=== PATIENT | female | born 1965 | race Caucasian/White ===

== ENCOUNTER → 2018-12-10 14:00 | Emergency (ER) | payer BC | END | disposition left against medical advice (07) | LOC: JD.ED 14:00 | DX: Z53.21 Procedure and treatment not carried out due to patient leaving prior to being seen by health care provider (principal) ==

== ENCOUNTER 2021-02-10 14:11 | Inpatient (IN) | payer BC ==
[2021-02-10] MEDS ORDERED: Sodium Chloride 0.9% 10 ML Syringe FLUSH PRN (14:34)
[2021-02-10] MEDS ORDERED: Ketorolac 30 MG/ML SDV IVPUSH ONE (15:12)
[2021-02-10] MEDS ORDERED: Ondansetron 4 MG/2 ML SDV IVPUSH ONE (15:12)
--- NOTE | 2021-02-10 15:30 | EDM.PDOC ---
ED HPI GENERAL MEDICAL PROBLEM - General Chief Complaint: Respiratory Problem Stated Complaint: NAUSEA Time Seen by Provider: 02/10/21 14:21 Source of Information: Reports: Patient, RN Notes Reviewed History Limitations: Reports: No Limitations - History of Present Illness INITIAL COMMENTS - FREE TEXT/NARRATIVE: Patient is a 55-year-old female presenting to the emergency department with complaints of fever, body aches, cough, shortness of breath, nausea with dry heaving, weakness, and diarrhea. Symptoms began on Saturday with weakness, diarrhea, decreased appetite, and mild cough. Today she developed fever and worsening of shortness of breath. On triage, she was found to be significantly hypoxic with an oxygen saturation of 70 to 75% on room air with a respiratory rate of 32. Temperature elevated at 101.2 pulse rate and blood pressure are normal. Patient states that she has taken Tylenol earlier today with little relief. She denies any chronic heart or lung conditions. She does have a history of hypothyroidism and migraines. Denies any known sick contacts. She has not been vaccinated for COVID-19. - Related Data Allergies Allergy/AdvReac Type Severity Reaction Status Date / Time No Known Allergies Allergy Verified 02/10/21 14:34 Home Meds: Home Meds Escitalopram [Lexapro] 30 mg PO DAILY 02/10/21 [History] LORazepam [Ativan] 0.5 - 1 mg PO BID 02/10/21 [History] Levothyroxine 125 mcg PO ACBREAKFAST 02/10/21 [History] Neomycin/Polymyxin B Sulf/HC [Pdjchcdi-Gegdbtxtb-Ze Ear Soln] 4 drop TOP QID 02/10/21 [History] QUEtiapine [SEROquel] 25 mg PO BID 02/10/21 [History] Past Medical History HEENT History: Reports: Impaired Vision Genitourinary History: Reports: Renal Calculus Psychiatric History: Reports: Anxiety, Depression Endocrine/Metabolic History: Reports: Other (See Below) Other Endocrine/Metabolic History: Thyroid removed - Past Surgical History HEENT Surgical History: Reports: Other (See Below) Other HEENT Surgeries/Procedures: thyroid removed GI Surgical History: Reports: Cholecystectomy, Colonoscopy Female Surgical History: Reports: Hysterectomy ED ROS GENERAL - Review of Systems Review Of Systems: See Below Constitutional: Reports: Fever, Chills, Weakness, Fatigue, Decreased Appetite HEENT: Reports: No Symptoms Respiratory: Reports: Shortness of Breath, Cough Cardiovascular: Reports: No Symptoms. Denies: Chest Pain, Palpitations Endocrine: Reports: No Symptoms GI/Abdominal: Reports: Abdominal Pain (Intermittent generalized abdominal pain), Diarrhea, Nausea, Vomiting : Reports: No Symptoms Musculoskeletal: Reports: Other (Generalized body aches) Skin: Reports: No Symptoms Neurological: Reports: No Symptoms, Headache. Denies: Confusion Psychiatric: Reports: Anxiety Hematologic/Lymphatic: Reports: No Symptoms Immunologic: Reports: No Symptoms ED EXAM, GENERAL - Physical Exam Exam: See Below General Appearance: Alert, Anxious, Mild Distress Respiratory/Chest: No Respiratory Distress, Lungs Clear, No Accessory Muscle Use, Chest Non-Tender, Decreased Breath Sounds (throughout), Other (shallow respiration, tachypnic) Cardiovascular: Normal Peripheral Pulses, Regular Rate, Rhythm, No Edema, No Gallop, No JVD, No Murmur, No Rub GI/Abdominal: Normal Bowel Sounds, Soft, Non-Tender, No Organomegaly, No Distention, No Abnormal Bruit, No Mass Neurological: Alert, Oriented, Normal Cognition, No Motor/Sensory Deficits Psychiatric: Normal Affect, Anxious Skin Exam: Intact, Increased Warmth, Pallor #1 Interpretation EKG Date: 02/10/21 Time: 14:29 Rhythm: NSR Rate (Beats/Min): 61 [place]: Normal P-Wave: Present QRS: Normal ST-T: Normal QT: Normal EKG Interpretation Comments: Atrial paced rhythm at 60 bpm Initial poor R wave progression with delayed transition Tall R wave lead I-consider left ventricular hypertrophy T wave flattening in aVF EKG interpreted by Dr. Niki ZAMORANO Course - Vital Signs Last Recorded V/S: Last Vital Signs Temp 97.6 F 02/10/21 18:58 Pulse 76 02/10/21 18:58 Resp 22 H 02/10/21 18:58 BP 101/65 02/10/21 18:58 Pulse Ox 90 L 02/10/21 18:58 - Orders/Labs/Meds Orders: Active Orders 24 hr Category Date Time Status CULTURE BLOOD [BC] Stat Lab 02/10/21 15:18 Received CULTURE BLOOD [BC] Stat Lab 02/10/21 15:28 Received Sodium Chloride 0.9% [Saline Flush] Med 02/10/21 14:34 Active 10 ml FLUSH ASDIRECTED PRN Blood Culture x2 Reflex Set [OM.PC] Stat Oth 02/10/21 14:34 Ordered Saline Lock Insert [OM.PC] Stat Oth 02/10/21 14:34 Ordered EKG 12 Lead [EK] Stat Ther 02/10/21 14:34 Ordered Medication Orders Acetaminophen (Acetaminophen 325 Mg Tab) 650 mg PO Q4H PRN PRN Reason: Fever Greater Than 101 Albuterol (Albuterol 6.7 Gm Inhaler) 0 gm INH Q2H PRN PRN Reason: SOB/Wheezing Aspirin (Aspirin 81 Mg Tab.Ec) 81 mg PO DAILY [facility] Cholecalciferol (Cholecalciferol (Vitamin D3) 5,000 Unit Cap) 5,000 unit PO BEDTIME [facility] Last Admin: 02/10/21 19:56 Dose: 5,000 unit Documented by: MARY Dexamethasone (Dexamethasone 4 Mg Tab) 6 mg PO DAILY [facility] Stop: 02/19/21 09:01 Enoxaparin Sodium (Enoxaparin 30 Mg/0.3 Ml Syringe) 30 mg SUBCUT BID [facility] Last Admin: 02/10/21 19:57 Dose: 30 mg Documented by: MARY Famotidine (Famotidine 20 Mg Tab) 20 mg PO BID [facility] Last Admin: 02/10/21 19:57 Dose: 20 mg Documented by: MARY Azithromycin 500 mg/ Sodium (Chloride) 250 mls @ 250 mls/hr IV Q24H [facility] Stop: 02/12/21 19:29 Last Admin: 02/10/21 18:49 Dose: 250 mls/hr Documented by: FABRICIO Remdesivir 100 mg/ Sodium (Chloride) 100 mls @ 100 mls/hr IV DAILY [facility] Stop: 02/14/21 09:59 Ceftriaxone Sodium 2 gm/ (Sodium Chloride) 100 mls @ 200 mls/hr IV Q24H [facility] Stop: 02/14/21 20:29 Remdesivir 200 mg/ Sodium (Chloride) 250 mls @ 250 mls/hr IV ONETIME ONE Stop: 02/10/21 21:59 Levothyroxine Sodium (Levothyroxine 125 Mcg Tab) 125 mcg PO ACBREAKFAST [facility] Lorazepam (Lorazepam 1 Mg Tab) 1 mg PO Q6H PRN PRN Reason: Anxiety Lorazepam (Lorazepam 1 Mg Tab) 0.5 - 1 mg PO BID [facility] Last Admin: 02/10/21 19:59 Dose: 1 mg Documented by: MARY Neomycin/Polymyxin/Hydrocortisone (Hydrocortisone/Neomycin/Polymyxin B Otic Susp 10 Ml Bottle) 0 ml .XX QID [facility] Non-Formulary Medication (Escitalopram) 30 mg PO DAILY [facility] Ondansetron HCl (Ondansetron 4 Mg/2 Ml Sdv) 4 mg IV Q6H PRN PRN Reason: Nausea/Vomiting Quetiapine Fumarate (Quetiapine 25 Mg Tab) 25 mg PO BID [facility] Sodium Chloride (Sodium Chloride 0.9% 10 Ml Syringe) 10 ml FLUSH ASDIRECTED PRN PRN Reason: Keep Vein Open Last Admin: 02/10/21 15:26 Dose: 10 ml Documented by: MEAGAN Zinc Sulfate (Zinc Sulfate 220 Mg Cap) 220 mg PO BEDTIME [facility] Last Admin: 02/10/21 19:57 Dose: 220 mg Documented by: MARY Labs: Laboratory Tests 02/10/21 02/10/21 02/10/21 Range/Units 14:54 15:18 15:18 WBC 3.70 L (3.98-10.04) K/mm3 RBC 4.95 (3.98-5.22) M/mm3 Hgb 13.8 (11.2-15.7) gm/dl Hct 43.6 (34.1-44.9) % MCV 88.1 (79.4-94.8) fl MCH 27.9 (25.6-32.2) pg MCHC 31.7 L (32.2-35.5) g/dl RDW Std Deviation 41.2 (36.4-46.3) fL Plt Count 181 L (182-369) K/mm3 MPV 10.2 (9.4-12.3) fl Neutrophils % (Manual) 81 H (40-60) % Band Neutrophils % 0 (0-10) % Lymphocytes % (Manual) 14 L (20-40) % Atypical Lymphs % 0 % Monocytes % (Manual) 4 (2-10) % Eosinophils % (Manual) 0 L (0.7-5.8) % Basophils % (Manual) 1 (0.1-1.2) Platelet Estimate Adequate RBC Morph Comment Normal PT 10.8 (9.7-12.0) SECONDS INR 1.01 D-Dimer, Quantitative 0.67 H (0.19-0.50) mg/L Puncture Site ABG pH (7.35-7.45) ABG pCO2 (35.0-45.0) mmHg ABG pO2 (80.0-100.0) mmHg ABG HCO3 (22.0-26.0) meq/L ABG O2 Saturation (96.0-97.0) % ABG Base Excess (-2-2.0) Savage Test A-a Gradient mmHg O2 Delivery Device Oxygen Flow Rate FiO2 (21.00-100.00) % Sodium (136-145) mEq/L Potassium (3.5-5.1) mEq/L Chloride (98-107) mEq/L Carbon Dioxide (21-32) mEq/L Anion Gap (5-15) BUN (7-18) mg/dL Creatinine (0.55-1.02) mg/dL Est Cr Clr Drug Dosing mL/min Estimated GFR (MDRD) (>60) mL/min BUN/Creatinine Ratio (14-18) Glucose (74-106) mg/dL Lactic Acid (0.4-2.0) mmol/L Calcium (8.5-10.1) mg/dL Magnesium (1.8-2.4) mg/dl Total Bilirubin (0.2-1.0) mg/dL AST (15-37) U/L ALT (14-59) U/L Alkaline Phosphatase (46-116) U/L Troponin I (0.00-0.056) ng/mL C-Reactive Protein (<1.0) mg/dL NT-Pro-B Natriuret Pep (0-125) pg/mL Total Protein (6.4-8.2) g/dl Albumin (3.4-5.0) g/dl Globulin gm/dL Albumin/Globulin Ratio (1-2) Influenza Type A RNA Negative (NEGATIVE) Influenza Type B RNA Negative (NEGATIVE) SARS-CoV-2 RNA ([place]) Positive H (NEGATIVE) 02/10/21 02/10/21 02/10/21 Range/Units 15:18 15:18 15:18 WBC (3.98-10.04) K/mm3 RBC (3.98-5.22) M/mm3 Hgb (11.2-15.7) gm/dl Hct (34.1-44.9) % MCV (79.4-94.8) fl MCH (25.6-32.2) pg MCHC (32.2-35.5) g/dl RDW Std Deviation (36.4-46.3) fL Plt Count (182-369) K/mm3 MPV (9.4-12.3) fl Neutrophils % (Manual) (40-60) % Band Neutrophils % (0-10) % Lymphocytes % (Manual) (20-40) % Atypical Lymphs % % Monocytes % (Manual) (2-10) % Eosinophils % (Manual) (0.7-5.8) % Basophils % (Manual) (0.1-1.2) Platelet Estimate RBC Morph Comment PT (9.7-12.0) SECONDS INR D-Dimer, Quantitative (0.19-0.50) mg/L Puncture Site ABG pH (7.35-7.45) ABG pCO2 (35.0-45.0) mmHg ABG pO2 (80.0-100.0) mmHg ABG HCO3 (22.0-26.0) meq/L ABG O2 Saturation (96.0-97.0) % ABG Base Excess (-2-2.0) Savage Test A-a Gradient mmHg O2 Delivery Device Oxygen Flow Rate FiO2 (21.00-100.00) % Sodium 141 (136-145) mEq/L Potassium 3.5 (3.5-5.1) mEq/L Chloride 103 (98-107) mEq/L Carbon Dioxide 26 (21-32) mEq/L Anion Gap 15.5 H (5-15) BUN 17 (7-18) mg/dL Creatinine 1.2 H (0.55-1.02) mg/dL Est Cr Clr Drug Dosing 38.50 mL/min Estimated GFR (MDRD) 47 (>60) mL/min BUN/Creatinine Ratio 14.2 (14-18) Glucose 127 H (74-106) mg/dL Lactic Acid 1.2 (0.4-2.0) mmol/L Calcium 8.0 L (8.5-10.1) mg/dL Magnesium 1.8 (1.8-2.4) mg/dl Total Bilirubin 0.3 (0.2-1.0) mg/dL AST 70 H (15-37) U/L ALT 69 H (14-59) U/L Alkaline Phosphatase 43 L (46-116) U/L Troponin I < 0.017 (0.00-0.056) ng/mL C-Reactive Protein 8.1 H* (<1.0) mg/dL NT-Pro-B Natriuret Pep (0-125) pg/mL Total Protein 7.9 (6.4-8.2) g/dl Albumin 3.3 L (3.4-5.0) g/dl Globulin 4.6 gm/dL Albumin/Globulin Ratio 0.7 L (1-2) Influenza Type A RNA (NEGATIVE) Influenza Type B RNA (NEGATIVE) SARS-CoV-2 RNA ([place]) (NEGATIVE) 02/10/21 02/10/21 Range/Units 15:18 15:27 WBC (3.98-10.04) K/mm3 RBC (3.98-5.22) M/mm3 Hgb (11.2-15.7) gm/dl Hct (34.1-44.9) % MCV (79.4-94.8) fl MCH (25.6-32.2) pg MCHC (32.2-35.5) g/dl RDW Std Deviation (36.4-46.3) fL Plt Count (182-369) K/mm3 MPV (9.4-12.3) fl Neutrophils % (Manual) (40-60) % Band Neutrophils % (0-10) % Lymphocytes % (Manual) (20-40) % Atypical Lymphs % % Monocytes % (Manual) (2-10) % Eosinophils % (Manual) (0.7-5.8) % Basophils % (Manual) (0.1-1.2) Platelet Estimate RBC Morph Comment PT (9.7-12.0) SECONDS INR D-Dimer, Quantitative (0.19-0.50) mg/L Puncture Site Lt radial ABG pH 7.37 (7.35-7.45) ABG pCO2 38.6 (35.0-45.0) mmHg ABG pO2 60.0 L (80.0-100.0) mmHg ABG HCO3 21.8 L (22.0-26.0) meq/L ABG O2 Saturation 90.3 L (96.0-97.0) % ABG Base Excess -2.6 L (-2-2.0) Savage Test Positive A-a Gradient 120 mmHg O2 Delivery Device Nasal cannula Oxygen Flow Rate 3.0 FiO2 32.00 (21.00-100.00) % Sodium (136-145) mEq/L Potassium (3.5-5.1) mEq/L Chloride (98-107) mEq/L Carbon Dioxide (21-32) mEq/L Anion Gap (5-15) BUN (7-18) mg/dL Creatinine (0.55-1.02) mg/dL Est Cr Clr Drug Dosing mL/min Estimated GFR (MDRD) (>60) mL/min BUN/Creatinine Ratio (14-18) Glucose (74-106) mg/dL Lactic Acid (0.4-2.0) mmol/L Calcium (8.5-10.1) mg/dL Magnesium (1.8-2.4) mg/dl Total Bilirubin (0.2-1.0) mg/dL AST (15-37) U/L ALT (14-59) U/L Alkaline Phosphatase (46-116) U/L Troponin I (0.00-0.056) ng/mL C-Reactive Protein (<1.0) mg/dL NT-Pro-B Natriuret Pep 22 (0-125) pg/mL Total Protein (6.4-8.2) g/dl Albumin (3.4-5.0) g/dl Globulin gm/dL Albumin/Globulin Ratio (1-2) Influenza Type A RNA (NEGATIVE) Influenza Type B RNA (NEGATIVE) SARS-CoV-2 RNA ([place]) (NEGATIVE) Meds: Medications Generic Name Dose Route Start Last Admin Trade Name Freq PRN Reason Stop Dose Admin Acetaminophen 650 mg 02/10/21 17:30 Acetaminophen 325 Mg Tab PO Q4H PRN Fever Greater Than 101 Albuterol 0 gm 02/10/21 18:52 Albuterol 6.7 Gm Inhaler INH Q2H PRN SOB/Wheezing Aspirin 81 mg 02/11/21 09:00 Aspirin 81 Mg Tab.Ec PO DAILY [facility] Cholecalciferol 5,000 unit 02/10/21 21:00 02/10/21 19:56 Cholecalciferol (Vitamin D3) 5,000 Unit Cap PO 5,000 unit BEDTIME [facility] Administration Dexamethasone 6 mg 02/11/21 09:00 Dexamethasone 4 Mg Tab PO 02/19/21 09:01 DAILY [facility] Enoxaparin Sodium 30 mg 02/10/21 21:00 02/10/21 19:57 Enoxaparin 30 Mg/0.3 Ml Syringe SUBCUT 30 mg BID [facility] Administration Famotidine 20 mg 02/10/21 21:00 02/10/21 19:57 Famotidine 20 Mg Tab PO 20 mg BID [facility] Administration Azithromycin 500 mg/ Sodium 250 mls @ 250 mls/hr 02/10/21 18:30 02/10/21 18:49 Chloride IV 02/12/21 19:29 250 mls/hr Q24H [facility] Administration Remdesivir 100 mg/ Sodium 100 mls @ 100 mls/hr 02/11/21 09:00 Chloride IV 02/14/21 09:59 DAILY [facility] Ceftriaxone Sodium 2 gm/ 100 mls @ 200 mls/hr 02/10/21 20:00 Sodium Chloride IV 02/14/21 20:29 Q24H [facility] Remdesivir 200 mg/ Sodium 250 mls @ 250 mls/hr 02/10/21 21:00 Chloride IV 02/10/21 21:59 ONETIME ONE Levothyroxine Sodium 125 mcg 02/11/21 06:00 Levothyroxine 125 Mcg Tab PO ACBREAKFAST [facility] Lorazepam 1 mg 02/10/21 17:42 Lorazepam 1 Mg Tab PO Q6H PRN Anxiety Lorazepam 0.5 - 1 mg 02/10/21 21:00 02/10/21 19:59 Lorazepam 1 Mg Tab PO 1 mg BID [facility] Administration Neomycin/Polymyxin/Hydrocortisone 0 ml 02/10/21 21:00 Hydrocortisone/Neomycin/Polymyxin B Otic Susp 10 Ml Bottle .XX QID [facility] Non-Formulary Medication 30 mg 02/11/21 09:00 Escitalopram PO DAILY [facility] Ondansetron HCl 4 mg 02/10/21 18:50 Ondansetron 4 Mg/2 Ml Sdv IV Q6H PRN Nausea/Vomiting Quetiapine Fumarate 25 mg 02/10/21 21:00 Quetiapine 25 Mg Tab PO BID [facility] Sodium Chloride 10 ml 02/10/21 14:34 02/10/21 15:26 Sodium Chloride 0.9% 10 Ml Syringe FLUSH 10 ml ASDIRECTED PRN Administration Keep Vein Open Zinc Sulfate 220 mg 02/10/21 21:00 02/10/21 19:57 Zinc Sulfate 220 Mg Cap PO 220 mg BEDTIME [facility] Administration Discontinued Medications Generic Name Dose Route Start Last Admin Trade Name Marcos PRJewels Reason Stop Dose Admin Cholecalciferol 5,000 unit 02/10/21 19:00 Cholecalciferol (Vitamin D3) 5,000 Unit Cap PO DAILY [facility] Dexamethasone 6 mg 02/10/21 15:41 02/10/21 15:48 Dexamethasone 4 Mg/Ml Sdv IVPUSH 02/10/21 15:42 6 mg ONETIME ONE Administration Dexamethasone 6 mg 02/11/21 09:00 Dexamethasone 10 Mg/Ml Sdv IVPUSH 02/19/21 09:01 DAILY [facility] Remdesivir 100 mg/ Sodium 100 mls @ 100 mls/hr 02/11/21 09:00 Chloride IV 02/14/21 09:59 DAILY [facility] Ceftriaxone Sodium 2 gm/ 100 mls @ 200 mls/hr 02/10/21 18:00 02/10/21 19:06 Sodium Chloride IV 02/14/21 18:29 Not Given Q24H [facility] Remdesivir 200 mg/ Sodium 250 mls @ 250 mls/hr 02/10/21 18:44 02/10/21 19:20 Chloride IV 02/10/21 18:45 Not Given ONETIME ONE Ketorolac Tromethamine 30 mg 02/10/21 15:12 02/10/21 15:22 Ketorolac 30 Mg/Ml Sdv IVPUSH 02/10/21 15:13 30 mg ONETIME ONE Administration Lorazepam 0.5 mg 02/10/21 16:38 02/10/21 16:57 Lorazepam 2 Mg/Ml Sdv IVPUSH 02/10/21 16:39 0.5 mg ONETIME ONE Administration Magnesium Oxide 400 mg 02/10/21 19:10 02/10/21 19:55 Magnesium Oxide 400 Mg Tab PO 02/10/21 19:11 400 mg ONETIME ONE Administration Ondansetron HCl 4 mg 02/10/21 15:12 02/10/21 15:23 Ondansetron 4 Mg/2 Ml Sdv IVPUSH 02/10/21 15:13 4 mg ONETIME ONE Administration Zinc Sulfate 220 mg 02/10/21 19:00 Zinc Sulfate 220 Mg Cap PO DAILY [facility] - Re-Assessments/Exams Free Text/Narrative Re-Assessment/Exam: Patient is a 55-year-old female presenting to the emergency department with complaints of fever, cough, shortness of breath, body aches, diarrhea, nausea with dry heaves. On exam, lung sounds are diminished throughout. Respirations are shallow. She is tachypneic. Oxygen saturation was as low as 70% on room air upon triage. She is currently on 3 L of oxygen saturating in the low 90s. She complains of significant body aches and nausea. Temperature was 101.2 on triage. Presentation is suspicious for a diagnosis of Covid, however will also complete a septic work-up. I will give her Zofran 4 mg IV for nausea as well as Toradol 30 mg IV for body aches and fever. 02/10/21 16:28 Hematology was significant for a WBC low at 3.7, D-dimer minimally elevated at 0.67, anion gap 15.5, creatinine 1.2 with a GFR 47, calcium 8.0, AST 70, ALT 69, CRP 8.1. ABGs on 3 L of oxygen by nasal cannula revealed a normal pH of 7.37, PCO2 normal at 38.6, PO2 low at 60.0, bicarb low at 21.8, O2 saturation low at 9 0.3. Covid screen did come back positive. EKG shows no evidence of acute ischemia. Chest x-ray shows patchy peripheral densities consistent with Covid pneumonia. Heart is also enlarged with mild pulmonary vascular congestion, suggesting mild CHF. Patient's proBNP was normal at 22. Her nausea and body aches have improved with the medications given. I ordered dexamethasone 6 mg IV to be given. Case was discussed with hospitalist, Dr. Bradford. He will accept the patient to admission into the ICU. Oxygen saturation did dip into the 80s on the 3 L, therefore she is currently on 4 L of oxygen by nasal cannula satting in the low 90s. 02/10/21 16:38 Patient is tearful and highly anxious. She has been removing her oxygen from her nose. She does have a history of anxiety. Have ordered Ativan 0.5 mg IV to be given now. Departure - Departure Time of Disposition: 16:28 Disposition: Admitted As Inpatient 67 Condition: Fair Clinical Impression: COVID-19, Hypoxia, Pneumonia due to COVID-19 virus - Discharge Information Sepsis Event Note (ED) - Evaluation Sepsis Screening Result: No Definite Risk - Focused Exam Vital Signs: Vital Signs Temp Pulse Resp BP Pulse Ox Pulse Ox 02/10/21 15:30 92 105/82 89 L 02/10/21 14:42 93 L 02/10/21 14:30 94 114/64 02/10/21 14:26 101.2 F H 95 32 H 114/64 75 L - My Orders Last 24 Hours: My Active Orders 02/10/21 14:34 Sodium Chloride 0.9% [Saline Flush] 10 ml FLUSH ASDIRECTED PRN Blood Culture x2 Reflex Set [OM.PC] Stat Saline Lock Insert [OM.PC] Stat EKG 12 Lead [EK] Stat 02/10/21 15:18 CULTURE BLOOD [BC] Stat 02/10/21 15:28 CULTURE BLOOD [BC] Stat - Assessment/Plan Last 24 Hours: My Active Orders 02/10/21 14:34 Sodium Chloride 0.9% [Saline Flush] 10 ml FLUSH ASDIRECTED PRN Blood Culture x2 Reflex Set [OM.PC] Stat Saline Lock Insert [OM.PC] Stat EKG 12 Lead [EK] Stat 02/10/21 15:18 CULTURE BLOOD [BC] Stat 02/10/21 15:28 CULTURE BLOOD [BC] Stat
[2021-02-10 15:41] LABS: CORONAVIRUS COVID-19 NAA POSITIVE (NEGATIVE)
[2021-02-10] MEDS ORDERED: Dexamethasone 4 MG/ML SDV IVPUSH ONE (15:41)
--- NOTE | 2021-02-10 15:59 | CR ---
Chest: Portable view of the chest was obtained. Comparison: No prior study. Patchy areas of increased density are noted within the periphery of both lungs. Heart is felt to be slightly enlarged. Pulmonary vessels are mildly congested. Degenerative endplate spurring is noted within the spine. Impression: 1. Patchy peripheral densities are seen. Please correlate if patient does have COVID disease. 2. Heart is enlarged with mild pulmonary vascular congestion suggesting mild CHF. Diagnostic code #3
[2021-02-10] MEDS ORDERED: LORazepam 2 MG/ML SDV IVPUSH ONE (16:38)
--- NOTE | 2021-02-10 17:11 | PCM.HP.2 ---
H&P History of Present Illness - General Date of Service: 02/10/21 Admit Problem/Dx: Admission Diagnosis/Problem Admission Diagnosis/Problem Pneumonia Source of Information: Patient, Provider History Limitations: Reports: Respiratory Distress - History of Present Illness Initial Comments - Free Text/Narative: Problem Stated Complaint: NAUSEA Time Seen by Provider: 02/10/21 14:21 Source of Information: Reports: Patient, RN Notes Reviewed History Limitations: Reports: No Limitations - History of Present Illness INITIAL COMMENTS - FREE TEXT/NARRATIVE: Patient is a 55-year-old female presenting to the emergency department with comp laints of fever, body aches, cough, shortness of breath, nausea with dry heaving, weakness, and diarrhea. Symptoms began on Saturday with weakness, diarrhea, decreased appetite, and mild cough. gradually worsening , but did not think she had covid until today . Today she developed fever and worsening of shortness of breath and whole body aches. On triage, she was found to be significantly hypoxic with an oxygen saturation of 70 to 75% on room air with a respiratory rate of 32. Temperature elevated at 101.2 pulse rate and blood pressure are normal. Patient states that she has taken Tylenol earlier today with little relief. She denies any chronic heart or lung conditions,but she has some suggestion of lvh on ekg. no hx of prev. chf. no hx of smoking She does have a history of hypothyroidism and migraines. she does have hx of anxiety and depression. Denies any known sick contacts. lives with her . She has not been vaccinated against covid. Onset of Symptoms: Reports: Gradual Duration of Symptoms: Reports: Day(s): (7) Location: Reports: Head, Face, Neck, Chest, Abdomen, Back, Generalized Quality: Reports: Ache Improves with: Reports: None Worsens with: Reports: None Associated Symptoms: Reports: Cough, Fever/Chills, Headaches, Loss of Appetite, Malaise, Nausea/Vomiting, Shortness of Breath, Weakness - Related Data Allergies/Adverse Reactions: Allergies Allergy/AdvReac Type Severity Reaction Status Date / Time No Known Allergies Allergy Verified 02/10/21 14:34 Home Medications: Home Meds LORazepam [Ativan] 02/10/21 [History] Past Medical History HEENT History: Reports: Impaired Vision Cardiovascular History: Reports: None. Denies: Angina, Arrhythmia, CAD, Heart Failure, Heart Murmur Respiratory History: Reports: None Genitourinary History: Reports: Renal Calculus Psychiatric History: Reports: Anxiety, Depression Endocrine/Metabolic History: Reports: Other (See Below) Other Endocrine/Metabolic History: Thyroid removed - Past Surgical History HEENT Surgical History: Reports: Other (See Below) Other HEENT Surgeries/Procedures: thyroid removed GI Surgical History: Reports: Cholecystectomy, Colonoscopy Female Surgical History: Reports: Hysterectomy Social & Family History - Tobacco Use Tobacco Use Status *Q: Never Tobacco User - Caffeine Use Caffeine Use: Reports: None - Recreational Drug Use Recreational Drug Use: No H&P Review of Systems - Review of Systems: Review Of Systems: See Below General: Reports: Fever, Weakness, Fatigue, Diaphoresis HEENT: Reports: Headaches, Sore Throat Pulmonary: Reports: No Symptoms Cardiovascular: Reports: Dyspnea on Exertion, Lightheadedness. Denies: Chest Pain, Palpitations, Orthopnea Gastrointestinal: Reports: Anorexia, Diarrhea. Denies: Bloody Stool, Hematochezia, Melena Genitourinary: Reports: No Symptoms Musculoskeletal: Reports: No Symptoms, Shoulder Pain, Back Pain, Muscle Stiffness Skin: Reports: No Symptoms Psychiatric: Reports: Anxiety Neurological: Reports: No Symptoms Hematologic/Lymphatic: Reports: No Symptoms Immunologic: Reports: No Symptoms Exam - Exam Exam: See Below - Vital Signs Vital Signs: Last Vital Signs Temp 37.1 C 02/10/21 17:03 Pulse 80 02/10/21 17:03 Resp 22 H 02/10/21 17:03 BP 105/82 02/10/21 17:03 Pulse Ox 92 L 02/10/21 17:03 Weight: 90.718 kg - Exam Quality Assessment: Supplemental Oxygen General: Alert, Oriented, Moderate Distress, Severe Distress HEENT: PERRLA, Hearing Intact, Mucosa Moist & [place], Nares Patent, Normal Nasal Septum, Posterior Pharynx Clear, Conjunctiva Clear, EOMI, EACs Clear, TMs Clear Neck: Supple, Trachea Midline. No: JVD Lungs: Decreased Breath Sounds, Rhonchi Cardiovascular: Regular Rate, Regular Rhythm GI/Abdominal Exam: Normal Bowel Sounds, Soft, Non-Tender, No Organomegaly, No Distention, No Abnormal Bruit, No Mass, Pelvis Stable (Female) Exam: No: Deferred Rectal (Female) Exam: No: Deferred Back Exam: Normal Inspection, Full Range of Motion, NT Extremities: Normal Inspection Skin: Warm, Dry, Intact Neurological: Cranial Nerves Intact, Reflexes Equal Bilateral Neuro Extensive - Mental Status: Alert, Oriented x3, Normal Mood/Affect, Normal Cognition Neuro Extensive - Motor, Sensory, Reflexes: CN II-XII Intact, Normal Gait, Normal Reflexes Psychiatric: Anxious - Patient Data Lab Results Last 24 hrs: Laboratory Results - last 24 hr 02/10/21 02/10/21 02/10/21 Range/Units 14:54 15:18 15:18 WBC 3.70 L (3.98-10.04) K/mm3 RBC 4.95 (3.98-5.22) M/mm3 Hgb 13.8 (11.2-15.7) gm/dl Hct 43.6 (34.1-44.9) % MCV 88.1 (79.4-94.8) fl MCH 27.9 (25.6-32.2) pg MCHC 31.7 L (32.2-35.5) g/dl RDW Std Deviation 41.2 (36.4-46.3) fL Plt Count 181 L (182-369) K/mm3 MPV 10.2 (9.4-12.3) fl Neutrophils % (Manual) 81 H (40-60) % Band Neutrophils % 0 (0-10) % Lymphocytes % (Manual) 14 L (20-40) % Atypical Lymphs % 0 % Monocytes % (Manual) 4 (2-10) % Eosinophils % (Manual) 0 L (0.7-5.8) % Basophils % (Manual) 1 (0.1-1.2) Platelet Estimate Adequate RBC Morph Comment Normal PT 10.8 (9.7-12.0) SECONDS INR 1.01 D-Dimer, Quantitative 0.67 H (0.19-0.50) mg/L Puncture Site ABG pH (7.35-7.45) ABG pCO2 (35.0-45.0) mmHg ABG pO2 (80.0-100.0) mmHg ABG HCO3 (22.0-26.0) meq/L ABG O2 Saturation (96.0-97.0) % ABG Base Excess (-2-2.0) Savage Test A-a Gradient mmHg O2 Delivery Device Oxygen Flow Rate FiO2 (21.00-100.00) % Sodium (136-145) mEq/L Potassium (3.5-5.1) mEq/L Chloride (98-107) mEq/L Carbon Dioxide (21-32) mEq/L Anion Gap (5-15) BUN (7-18) mg/dL Creatinine (0.55-1.02) mg/dL Est Cr Clr Drug Dosing mL/min Estimated GFR (MDRD) (>60) mL/min BUN/Creatinine Ratio (14-18) Glucose (74-106) mg/dL Lactic Acid (0.4-2.0) mmol/L Calcium (8.5-10.1) mg/dL Magnesium (1.8-2.4) mg/dl Total Bilirubin (0.2-1.0) mg/dL AST (15-37) U/L ALT (14-59) U/L Alkaline Phosphatase (46-116) U/L Troponin I (0.00-0.056) ng/mL C-Reactive Protein (<1.0) mg/dL NT-Pro-B Natriuret Pep (0-125) pg/mL Total Protein (6.4-8.2) g/dl Albumin (3.4-5.0) g/dl Globulin gm/dL Albumin/Globulin Ratio (1-2) Influenza Type A RNA Negative (NEGATIVE) Influenza Type B RNA Negative (NEGATIVE) SARS-CoV-2 RNA ([place]) Positive H (NEGATIVE) 02/10/21 02/10/21 02/10/21 Range/Units 15:18 15:18 15:18 WBC (3.98-10.04) K/mm3 RBC (3.98-5.22) M/mm3 Hgb (11.2-15.7) gm/dl Hct (34.1-44.9) % MCV (79.4-94.8) fl MCH (25.6-32.2) pg MCHC (32.2-35.5) g/dl RDW Std Deviation (36.4-46.3) fL Plt Count (182-369) K/mm3 MPV (9.4-12.3) fl Neutrophils % (Manual) (40-60) % Band Neutrophils % (0-10) % Lymphocytes % (Manual) (20-40) % Atypical Lymphs % % Monocytes % (Manual) (2-10) % Eosinophils % (Manual) (0.7-5.8) % Basophils % (Manual) (0.1-1.2) Platelet Estimate RBC Morph Comment PT (9.7-12.0) SECONDS INR D-Dimer, Quantitative (0.19-0.50) mg/L Puncture Site ABG pH (7.35-7.45) ABG pCO2 (35.0-45.0) mmHg ABG pO2 (80.0-100.0) mmHg ABG HCO3 (22.0-26.0) meq/L ABG O2 Saturation (96.0-97.0) % ABG Base Excess (-2-2.0) Savage Test A-a Gradient mmHg O2 Delivery Device Oxygen Flow Rate FiO2 (21.00-100.00) % Sodium 141 (136-145) mEq/L Potassium 3.5 (3.5-5.1) mEq/L Chloride 103 (98-107) mEq/L Carbon Dioxide 26 (21-32) mEq/L Anion Gap 15.5 H (5-15) BUN 17 (7-18) mg/dL Creatinine 1.2 H (0.55-1.02) mg/dL Est Cr Clr Drug Dosing 38.50 mL/min Estimated GFR (MDRD) 47 (>60) mL/min BUN/Creatinine Ratio 14.2 (14-18) Glucose 127 H (74-106) mg/dL Lactic Acid 1.2 (0.4-2.0) mmol/L Calcium 8.0 L (8.5-10.1) mg/dL Magnesium 1.8 (1.8-2.4) mg/dl Total Bilirubin 0.3 (0.2-1.0) mg/dL AST 70 H (15-37) U/L ALT 69 H (14-59) U/L Alkaline Phosphatase 43 L (46-116) U/L Troponin I < 0.017 (0.00-0.056) ng/mL C-Reactive Protein 8.1 H* (<1.0) mg/dL NT-Pro-B Natriuret Pep (0-125) pg/mL Total Protein 7.9 (6.4-8.2) g/dl Albumin 3.3 L (3.4-5.0) g/dl Globulin 4.6 gm/dL Albumin/Globulin Ratio 0.7 L (1-2) Influenza Type A RNA (NEGATIVE) Influenza Type B RNA (NEGATIVE) SARS-CoV-2 RNA ([place]) (NEGATIVE) 02/10/21 02/10/21 Range/Units 15:18 15:27 WBC (3.98-10.04) K/mm3 RBC (3.98-5.22) M/mm3 Hgb (11.2-15.7) gm/dl Hct (34.1-44.9) % MCV (79.4-94.8) fl MCH (25.6-32.2) pg MCHC (32.2-35.5) g/dl RDW Std Deviation (36.4-46.3) fL Plt Count (182-369) K/mm3 MPV (9.4-12.3) fl Neutrophils % (Manual) (40-60) % Band Neutrophils % (0-10) % Lymphocytes % (Manual) (20-40) % Atypical Lymphs % % Monocytes % (Manual) (2-10) % Eosinophils % (Manual) (0.7-5.8) % Basophils % (Manual) (0.1-1.2) Platelet Estimate RBC Morph Comment PT (9.7-12.0) SECONDS INR D-Dimer, Quantitative (0.19-0.50) mg/L Puncture Site Lt radial ABG pH 7.37 (7.35-7.45) ABG pCO2 38.6 (35.0-45.0) mmHg ABG pO2 60.0 L (80.0-100.0) mmHg ABG HCO3 21.8 L (22.0-26.0) meq/L ABG O2 Saturation 90.3 L (96.0-97.0) % ABG Base Excess -2.6 L (-2-2.0) Savage Test Positive A-a Gradient 120 mmHg O2 Delivery Device Nasal cannula Oxygen Flow Rate 3.0 FiO2 32.00 (21.00-100.00) % Sodium (136-145) mEq/L Potassium (3.5-5.1) mEq/L Chloride (98-107) mEq/L Carbon Dioxide (21-32) mEq/L Anion Gap (5-15) BUN (7-18) mg/dL Creatinine (0.55-1.02) mg/dL Est Cr Clr Drug Dosing mL/min Estimated GFR (MDRD) (>60) mL/min BUN/Creatinine Ratio (14-18) Glucose (74-106) mg/dL Lactic Acid (0.4-2.0) mmol/L Calcium (8.5-10.1) mg/dL Magnesium (1.8-2.4) mg/dl Total Bilirubin (0.2-1.0) mg/dL AST (15-37) U/L ALT (14-59) U/L Alkaline Phosphatase (46-116) U/L Troponin I (0.00-0.056) ng/mL C-Reactive Protein (<1.0) mg/dL NT-Pro-B Natriuret Pep 22 (0-125) pg/mL Total Protein (6.4-8.2) g/dl Albumin (3.4-5.0) g/dl Globulin gm/dL Albumin/Globulin Ratio (1-2) Influenza Type A RNA (NEGATIVE) Influenza Type B RNA (NEGATIVE) SARS-CoV-2 RNA ([place]) (NEGATIVE) Result Diagrams: 02/10/21 15:18 02/10/21 15:18 Sepsis Event Note - Evaluation Sepsis Screening Result: No Definite Risk Possible Source of Sepsis: Pulmonary - Focused Exam Vital Signs: Vital Signs Temp Pulse Resp BP Pulse Ox Pulse Ox 02/10/21 17:03 37.1 C 80 22 H 105/82 92 L 02/10/21 14:42 93 L 02/10/21 14:26 38.4 C H 95 32 H 114/64 75 L Respiratory Effort Without Exertion: Dyspneic Heart Sounds: Distant Capillary Refill, Detail: Greater than (>) 2 Seconds Pulse Description: 2+ Normal Skin Exam (Focused Sepsis): Normal Turgor Date Exam was Performed: 02/10/21 Time Exam was Performed: 04:00 - Bedside Monitoring CVP Measures: Less than 8 ScvO2 Measures: Greater than or Equal to 70% Bedside Ultrasound Performed: No Passive Leg Raise/Fluid Bolus: Negative, Not Performed (covid symptoms x one week with pulm infiltrate and pos test . blood cultures and lactic acid done.) Date Bedside Monitoring was Performed: 02/10/21 Time Bedside Monitoring was Performed: 17:18 - Problem List (1) COVID-19 SNOMED Code(s): 848573087 ICD Code: U07.1 - COVID-19 Status: Acute Priority: High Current Visit: Yes Onset Date: ~02/03/21 (2) Hypoxia SNOMED Code(s): 196356992 ICD Code: R09.02 - HYPOXEMIA Status: Acute Priority: High Current Visit: Yes Onset Date: ~02/10/21 (3) Anxiety SNOMED Code(s): 86336881 ICD Code: F41.9 - ANXIETY DISORDER, UNSPECIFIED Status: Acute Priority: Medium Current Visit: Yes Onset Date: ~02/10/21 (4) Obesity (BMI 30-39.9) SNOMED Code(s): 372151743, 532052216 ICD Code: E66.9 - OBESITY, UNSPECIFIED Status: Acute Priority: Medium Current Visit: Yes Onset Date: ~02/10/21 Problem List Initiated/Reviewed/Updated: Yes Orders Last 24hrs: Active Orders 24 hr Category Date Time Status Patient Status [ADT] Routine ADT 02/10/21 16:42 Active Cardiac Monitoring [RC] . DIRECTED Care 02/10/21 15:39 Active Oxygen Therapy [RC] ASDIRECTED Care 02/10/21 14:42 Active CULTURE BLOOD [BC] Stat Lab 02/10/21 15:18 Received CULTURE BLOOD [BC] Stat Lab 02/10/21 15:28 Received UA W/ACE RFLX IF INDICATED [URIN] Stat Lab 02/10/21 14:34 Ordered Sodium Chloride 0.9% [Saline Flush] Med 02/10/21 14:34 Active 10 ml FLUSH ASDIRECTED PRN Blood Culture x2 Reflex Set [OM.PC] Stat Oth 02/10/21 14:34 Ordered Saline Lock Insert [OM.PC] Stat Oth 02/10/21 14:34 Ordered EKG 12 Lead [EK] Stat Ther 02/10/21 14:34 Ordered Medication Orders Sodium Chloride (Sodium Chloride 0.9% 10 Ml Syringe) 10 ml FLUSH ASDIRECTED PRN PRN Reason: Keep Vein Open Last Admin: 02/10/21 15:26 Dose: 10 ml Documented by: MEAGAN Assessment/Plan Comment:: 02/10/21 plan: start covid treatment : i.v support/dexameth/remdisavir/prone positioning/ nebs/telemtry. hypoxia with sats now in 90-92 and tachipnea on 4 liters n.c . follow protocol for resp assist. 2) control anxiety: low dose lorazepam and reassurance and pain and analgesics for aching. 3) monitor for cv issues d dimers daily and cbc/crp and sepsis rule out done. empiric antibiotic Rocephin started and recheck xray in am boh - Mortality Measure Prognosis:: Good
[2021-02-10] MEDS ORDERED: Acetaminophen 325 MG Tab PO PRN (17:30)
[2021-02-10] MEDS ORDERED: LORazepam 1 MG Tab PO PRN (17:42)
[2021-02-10] MEDS ORDERED: cefTRIAXone 2 GM in Sodium Chloride 0.9% 100 ML IV SCH (18:00)
[2021-02-10] MEDS ORDERED: REMDESIVIR 200 MG in Sodium Chloride 0.9% 250 ML IV ONE ×2 (18:44→21:00)
[2021-02-10] MEDS: Azithromycin 500 MG in Sodium Chloride 0.9% 250 ML IV SCH (18:49)
[2021-02-10] MEDS ORDERED: Ondansetron 4 MG/2 ML SDV IV PRN (18:50)
[2021-02-10] MEDS ORDERED: Albuterol 6.7 GM Inhaler INH PRN (18:52)
[2021-02-10] MEDS ORDERED: Zinc Sulfate 220 MG Cap PO SCH (19:00)
[2021-02-10] MEDS ORDERED: Cholecalciferol (Vitamin D3) 5,000 UNIT Cap PO SCH (19:00)
[2021-02-10] MEDS ORDERED: Magnesium Oxide 400 MG Tab PO ONE (19:10)
[2021-02-10] MEDS: Cholecalciferol (Vitamin D3) 5,000 UNIT Cap PO SCH ×2 (19:56→22:02)
[2021-02-10] MEDS: Enoxaparin 30 MG/0.3 ML Syringe SUBCUT SCH ×2 (19:57→22:02)
[2021-02-10] MEDS: Famotidine 20 MG Tab PO SCH ×2 (19:57→22:02)
[2021-02-10] MEDS: Zinc Sulfate 220 MG Cap PO SCH ×2 (19:57→22:02)
[2021-02-10] MEDS: LORazepam 1 MG Tab PO SCH (19:59)
[2021-02-10] MEDS: cefTRIAXone 2 GM in Sodium Chloride 0.9% 100 ML IV SCH (20:00)
[2021-02-10] MEDS: QUEtiapine 25 MG Tab PO SCH (22:02)
[2021-02-11] MEDS: Levothyroxine 125 MCG Tab PO SCH ×2 (04:20→05:23)
[2021-02-11] MEDS: guaiFENesin/Dextromethorphan 100-10 MG/5 ML Soln 5 ML Cup PO PRN (06:08)
[2021-02-11] MEDS: Enoxaparin 30 MG/0.3 ML Syringe SUBCUT SCH (08:07)
[2021-02-11] MEDS: Dexamethasone 4 MG Tab PO SCH (08:08)
[2021-02-11] MEDS: Famotidine 20 MG Tab PO SCH ×3 (08:08→20:10)
[2021-02-11] MEDS: LORazepam 1 MG Tab PO SCH (08:08)
[2021-02-11] MEDS: QUEtiapine 25 MG Tab PO SCH (08:15)
[2021-02-11] MEDS: Hydrocortisone/Neomycin/Polymyxin B Otic Susp 10 ML Bottle SCH (08:23)
[2021-02-11] MEDS ORDERED: Dexamethasone 10 MG/ML SDV IVPUSH SCH (09:00)
[2021-02-11] MEDS ORDERED: Aspirin 81 MG Tab.EC PO SCH (09:00)
[2021-02-11] MEDS ORDERED: Citalopram 20 MG Tab PO SCH (09:00)
[2021-02-11] MEDS ORDERED: REMDESIVIR 100 MG in Sodium Chloride 0.9% 100 ML IV SCH ×3 (09:00→21:00)
[2021-02-11] MEDS: methylPREDNISolone Sodium Succinate 40 MG/1 ML SDV IVPUSH SCH (12:10)
[2021-02-11] MEDS: Pantoprazole 40 MG Tab.CR PO SCH (12:10)
[2021-02-11] MEDS ORDERED: Sodium Chloride 0.9% 250 ML IV ONE (12:30)
[2021-02-11] MEDS: LORazepam 2 MG/ML SDV IVPUSH PRN ×2 (13:29→19:40)
[2021-02-11] MEDS: Azithromycin 500 MG in Sodium Chloride 0.9% 250 ML IV SCH (17:34)
--- NOTE | 2021-02-11 17:57 | CR ---
Chest: Portable view of the chest was obtained. Comparison: Prior chest x-ray of 02/10/21. Findings: Heart is somewhat enlarged. Upper mediastinum is normal. Increasing densities are seen within both lungs as an interval change from prior exam. Bony structures show nothing acute. Impression: 1. Worsening areas of increased density on both sides of the chest. Findings are suspicious for worsening bilateral pneumonia. 2. Stable cardiomegaly. Parenchymal densities interfere with evaluation of pulmonary vascular congestion. Diagnostic code #3
--- NOTE | 2021-02-11 18:55 | PCM.PN ---
- General Info Date of Service: 02/11/21 Admission Dx/Problem (Free Text): Admission Diagnosis/Problem Admission Diagnosis/Problem Pneumonia Subjective Update: Patient is a 55-year-old female presenting to the emergency department with complaints of fever, body aches, cough, shortness of breath, nausea with dry heaving, weakness, and diarrhea. Patient does not have any new complaints. She is anxious at times Pressure is soft Patient is on 6 L Platelets 192 D-dimer 0.83, CRP 9.9 Creatinine 1.1 AST 61, ALT 64 - Review of Systems Systems Review Comment:: General: Reports: Fever, Weakness, Fatigue, Diaphoresis HEENT: Reports: Headaches, Sore Throat Pulmonary: Reports: No Symptoms Cardiovascular: Reports: Dyspnea on Exertion, Lightheadedness. Denies: Chest Pain, Palpitations, Orthopnea Gastrointestinal: Reports: Anorexia, Diarrhea. Denies: Bloody Stool, Hematochezia, Melena Genitourinary: Reports: No Symptoms Musculoskeletal: Reports: No Symptoms, Shoulder Pain, Back Pain, Muscle Stiffness Skin: Reports: No Symptoms Psychiatric: Reports: Anxiety Neurological: Reports: No Symptoms Hematologic/Lymphatic: Reports: No Symptoms Immunologic: Reports: No Symptoms - Patient Data Vitals - Most Recent: Last Vital Signs Temp 36.1 C 02/11/21 15:35 Pulse 59 L 02/11/21 15:35 Resp 18 02/11/21 15:35 BP 89/60 L 02/11/21 15:35 Pulse Ox 90 L 02/11/21 18:22 Weight - Most Recent: 91.263 kg I&O - Last 24 Hours: Intake & Output 02/11/21 02/11/21 02/11/21 06:59 14:59 22:59 Intake Total 450 1630 Output Total 600 Balance 450 1030 Lab Results Last 24 Hours: Laboratory Results - last 24 hr 02/10/21 02/11/21 02/11/21 Range/Units 20:25 05:35 05:35 WBC (3.98-10.04) K/mm3 RBC (3.98-5.22) M/mm3 Hgb (11.2-15.7) gm/dl Hct (34.1-44.9) % MCV (79.4-94.8) fl MCH (25.6-32.2) pg MCHC (32.2-35.5) g/dl RDW Std Deviation (36.4-46.3) fL Plt Count (182-369) K/mm3 MPV (9.4-12.3) fl Neut % (Auto) (34.0-71.1) % Lymph % (Auto) (19.3-51.7) % Williams % (Auto) (4.7-12.5) % Eos % (Auto) (0.7-5.8) Baso % (Auto) (0.1-1.2) % Neut # (Auto) (1.56-6.13) K/mm3 Lymph # (Auto) (1.18-3.74) K/mm3 Williams # (Auto) (0.24-0.36) K/mm3 Eos # (Auto) (0.04-0.36) K/mm3 Baso # (Auto) (0.01-0.08) K/mm3 D-Dimer, Quantitative 0.83 H (0.19-0.50) mg/L Sodium (136-145) mEq/L Potassium (3.5-5.1) mEq/L Chloride (98-107) mEq/L Carbon Dioxide (21-32) mEq/L Anion Gap (5-15) BUN (7-18) mg/dL Creatinine (0.55-1.02) mg/dL Est Cr Clr Drug Dosing mL/min Estimated GFR (MDRD) (>60) mL/min BUN/Creatinine Ratio (14-18) Glucose (74-106) mg/dL Lactic Acid (0.4-2.0) mmol/L Calcium (8.5-10.1) mg/dL Magnesium (1.8-2.4) mg/dl Ferritin 1267 H (8-252) ng/ml Total Bilirubin (0.2-1.0) mg/dL AST (15-37) U/L ALT (14-59) U/L Alkaline Phosphatase (46-116) U/L C-Reactive Protein (<1.0) mg/dL Total Protein (6.4-8.2) g/dl Albumin (3.4-5.0) g/dl Globulin gm/dL Albumin/Globulin Ratio (1-2) Urine Color Yellow (Yellow) Urine Appearance Cloudy H (Clear) Urine pH 6.0 (5.0-8.0) Ur Specific [place] > or = 1.030 (1.005-1.030) Urine Protein 2+ H (Negative) Urine Glucose (UA) Negative (Negative) Urine Ketones 1+ H (Negative) Urine Occult Blood Negative (Negative) Urine Nitrite Negative (Negative) Urine Bilirubin 1+ H (Negative) Urine Urobilinogen 0.2 (0.2-1.0) Ur Leukocyte Esterase Negative (Negative) Urine RBC 0-5 (0-5) /hpf Urine WBC 0-5 (0-5) /hpf Ur Squamous Epith Cells 20-30 H (0-5) /hpf Urine Bacteria Moderate H (FEW) /hpf Urine Mucus Moderate H (FEW) /hpf 02/11/21 02/11/21 02/11/21 Range/Units 05:35 05:35 05:35 WBC 3.20 L (3.98-10.04) K/mm3 RBC 4.76 (3.98-5.22) M/mm3 Hgb 13.3 (11.2-15.7) gm/dl Hct 42.4 (34.1-44.9) % MCV 89.1 (79.4-94.8) fl MCH 27.9 (25.6-32.2) pg MCHC 31.4 L (32.2-35.5) g/dl RDW Std Deviation 41.9 (36.4-46.3) fL Plt Count 192 (182-369) K/mm3 MPV 10.0 (9.4-12.3) fl Neut % (Auto) 78.1 H (34.0-71.1) % Lymph % (Auto) 17.8 L (19.3-51.7) % Williams % (Auto) 4.1 L (4.7-12.5) % Eos % (Auto) 0 L (0.7-5.8) Baso % (Auto) 0.0 L (0.1-1.2) % Neut # (Auto) 2.50 (1.56-6.13) K/mm3 Lymph # (Auto) 0.57 L (1.18-3.74) K/mm3 Williams # (Auto) 0.13 L (0.24-0.36) K/mm3 Eos # (Auto) 0.00 L (0.04-0.36) K/mm3 Baso # (Auto) 0.00 L (0.01-0.08) K/mm3 D-Dimer, Quantitative (0.19-0.50) mg/L Sodium 141 (136-145) mEq/L Potassium 3.8 (3.5-5.1) mEq/L Chloride 103 (98-107) mEq/L Carbon Dioxide 23 (21-32) mEq/L Anion Gap 18.8 H (5-15) BUN 23 H (7-18) mg/dL Creatinine 1.1 H (0.55-1.02) mg/dL Est Cr Clr Drug Dosing 42.00 mL/min Estimated GFR (MDRD) 52 (>60) mL/min BUN/Creatinine Ratio 20.9 H (14-18) Glucose 123 H (74-106) mg/dL Lactic Acid 1.4 (0.4-2.0) mmol/L Calcium 7.7 L (8.5-10.1) mg/dL Magnesium 1.9 (1.8-2.4) mg/dl Ferritin (8-252) ng/ml Total Bilirubin 0.3 (0.2-1.0) mg/dL AST 61 H (15-37) U/L ALT 64 H (14-59) U/L Alkaline Phosphatase 37 L (46-116) U/L C-Reactive Protein 9.9 H* (<1.0) mg/dL Total Protein 7.4 (6.4-8.2) g/dl Albumin 2.9 L (3.4-5.0) g/dl Globulin 4.5 gm/dL Albumin/Globulin Ratio 0.6 L (1-2) Urine Color (Yellow) Urine Appearance (Clear) Urine pH (5.0-8.0) Ur Specific [place] (1.005-1.030) Urine Protein (Negative) Urine Glucose (UA) (Negative) Urine Ketones (Negative) Urine Occult Blood (Negative) Urine Nitrite (Negative) Urine Bilirubin (Negative) Urine Urobilinogen (0.2-1.0) Ur Leukocyte Esterase (Negative) Urine RBC (0-5) /hpf Urine WBC (0-5) /hpf Ur Squamous Epith Cells (0-5) /hpf Urine Bacteria (FEW) /hpf Urine Mucus (FEW) /hpf [place] Results Last 24 Hours: Microbiology 02/10/21 15:28 Aerobic Blood Culture - Preliminary Blood - Venous - Lab Draw NO GROWTH AFTER 1 DAY Anaerobic Blood Culture - Preliminary NO GROWTH AFTER 1 DAY 02/10/21 15:18 Aerobic Blood Culture - Preliminary Blood - Venous NO GROWTH AFTER 1 DAY Anaerobic Blood Culture - Preliminary NO GROWTH AFTER 1 DAY Med Orders - Current: Current Medications Acetaminophen (Acetaminophen 325 Mg Tab) 650 mg PO Q4H PRN PRN Reason: Fever Greater Than 101 Albuterol (Albuterol 6.7 Gm Inhaler) 0 gm INH Q2H PRN PRN Reason: SOB/Wheezing Cholecalciferol (Cholecalciferol (Vitamin D3) 5,000 Unit Cap) 5,000 unit PO BEDTIME [facility] Last Admin: 02/10/21 22:02 Dose: Not Given Documented by: Dexamethasone (Dexamethasone 4 Mg Tab) 6 mg PO DAILY [facility] Stop: 02/19/21 09:01 Last Admin: 02/11/21 08:08 Dose: 6 mg Documented by: Enoxaparin Sodium (Enoxaparin 80 Mg/0.8 Ml Syringe) 80 mg SUBCUT BID [facility] Famotidine (Famotidine 20 Mg Tab) 20 mg PO BID [facility] Last Admin: 02/11/21 08:08 Dose: 20 mg Documented by: Guaifenesin/Phenylephrine HCl (Guaifenesin/Dextromethorphan 100-10 Mg/5 Ml Soln 5 Ml Cup) 10 ml PO Q4H PRN PRN Reason: Cough Last Admin: 02/11/21 06:08 Dose: 10 ml Documented by: Azithromycin 500 mg/ Sodium (Chloride) 250 mls @ 250 mls/hr IV Q24H [facility] Stop: 02/12/21 19:29 Last Admin: 02/11/21 17:34 Dose: 250 mls/hr Documented by: Ceftriaxone Sodium 2 gm/ (Sodium Chloride) 100 mls @ 200 mls/hr IV Q24H [facility] Stop: 02/14/21 20:29 Last Admin: 02/10/21 20:00 Dose: 200 mls/hr Documented by: Remdesivir 100 mg/ Sodium (Chloride) 100 mls @ 100 mls/hr IV Q24H [facility] Stop: 02/14/21 21:59 Levothyroxine Sodium (Levothyroxine 125 Mcg Tab) 125 mcg PO ACBREAKFAST [facility] Last Admin: 02/11/21 05:23 Dose: Not Given Documented by: Lorazepam (Lorazepam 2 Mg/Ml Sdv) 0.5 mg IVPUSH Q6H PRN PRN Reason: Anxiety Last Admin: 02/11/21 13:29 Dose: 0.5 mg Documented by: Methylprednisolone Sodium Succinate (Methylprednisolone Sodium Succinate 40 Mg/1 Ml Sdv) 60 mg IVPUSH DAILY [facility] Stop: 02/13/21 09:01 Last Admin: 02/11/21 12:10 Dose: 60 mg Documented by: Ondansetron HCl (Ondansetron 4 Mg/2 Ml Sdv) 4 mg IV Q6H PRN PRN Reason: Nausea/Vomiting Pantoprazole Sodium (Pantoprazole 40 Mg Tab.Cr) 40 mg PO ACBREAKFAST [facility] Last Admin: 02/11/21 12:10 Dose: 40 mg Documented by: Sodium Chloride (Sodium Chloride 0.9% 10 Ml Syringe) 10 ml FLUSH ASDIRECTED PRN PRN Reason: Keep Vein Open Last Admin: 02/10/21 15:26 Dose: 10 ml Documented by: Zinc Sulfate (Zinc Sulfate 220 Mg Cap) 220 mg PO BEDTIME [facility] Last Admin: 02/10/21 22:02 Dose: Not Given Documented by: Discontinued Medications Aspirin (Aspirin 81 Mg Tab.Ec) 81 mg PO DAILY [facility] Last Admin: 02/11/21 08:08 Dose: 81 mg Documented by: Cholecalciferol (Cholecalciferol (Vitamin D3) 5,000 Unit Cap) 5,000 unit PO DAILY [facility] Last Admin: 02/10/21 22:06 Dose: Not Given Documented by: Citalopram Hydrobromide (Citalopram 20 Mg Tab) 40 mg PO DAILY [facility] Last Admin: 02/11/21 08:23 Dose: Not Given Documented by: Dexamethasone (Dexamethasone 4 Mg/Ml Sdv) 6 mg IVPUSH ONETIME ONE Stop: 02/10/21 15:42 Last Admin: 02/10/21 15:48 Dose: 6 mg Documented by: Dexamethasone (Dexamethasone 10 Mg/Ml Sdv) 6 mg IVPUSH DAILY [facility] Stop: 02/19/21 09:01 Enoxaparin Sodium (Enoxaparin 30 Mg/0.3 Ml Syringe) 30 mg SUBCUT BID [facility] Last Admin: 02/11/21 08:07 Dose: 30 mg Documented by: Remdesivir 100 mg/ Sodium (Chloride) 100 mls @ 100 mls/hr IV DAILY [facility] Stop: 02/14/21 09:59 Ceftriaxone Sodium 2 gm/ (Sodium Chloride) 100 mls @ 200 mls/hr IV Q24H [facility] Stop: 02/14/21 18:29 Last Admin: 02/10/21 19:06 Dose: Not Given Documented by: Remdesivir 200 mg/ Sodium (Chloride) 250 mls @ 250 mls/hr IV ONETIME ONE Stop: 02/10/21 18:45 Last Admin: 02/10/21 19:20 Dose: Not Given Documented by: Remdesivir 100 mg/ Sodium (Chloride) 100 mls @ 100 mls/hr IV DAILY [facility] Stop: 02/14/21 09:59 Remdesivir 200 mg/ Sodium (Chloride) 250 mls @ 250 mls/hr IV ONETIME ONE Stop: 02/10/21 21:59 Last Admin: 02/10/21 21:11 Dose: 250 mls/hr Documented by: Methylprednisolone Sodium Succinate 60 mg/ Sodium Chloride 250.48 mls @ 250.48 mls/hr IV DAILY ONE Stop: 02/11/21 11:51 Last Admin: 02/11/21 12:01 Dose: Not Given Documented by: Sodium Chloride (Normal Saline) 250 mls @ 250 mls/hr IV ASDIRECTED ONE Stop: 02/11/21 13:29 Last Admin: 02/11/21 12:47 Dose: 250 mls/hr Documented by: Ketorolac Tromethamine (Ketorolac 30 Mg/Ml Sdv) 30 mg IVPUSH ONETIME ONE Stop: 02/10/21 15:13 Last Admin: 02/10/21 15:22 Dose: 30 mg Documented by: Lorazepam (Lorazepam 2 Mg/Ml Sdv) 0.5 mg IVPUSH ONETIME ONE Stop: 02/10/21 16:39 Last Admin: 02/10/21 16:57 Dose: 0.5 mg Documented by: Lorazepam (Lorazepam 1 Mg Tab) 1 mg PO Q6H PRN PRN Reason: Anxiety Last Admin: 02/11/21 04:19 Dose: 1 mg Documented by: Lorazepam (Lorazepam 1 Mg Tab) 0.5 - 1 mg PO BID [facility] Last Admin: 02/11/21 08:08 Dose: 1 mg Documented by: Magnesium Oxide (Magnesium Oxide 400 Mg Tab) 400 mg PO ONETIME ONE Stop: 02/10/21 19:11 Last Admin: 02/10/21 19:55 Dose: 400 mg Documented by: Neomycin/Polymyxin/Hydrocortisone (Hydrocortisone/Neomycin/Polymyxin B Otic Susp 10 Ml Bottle) 0 ml .XX QID [facility] Last Admin: 02/11/21 08:23 Dose: Not Given Documented by: Ondansetron HCl (Ondansetron 4 Mg/2 Ml Sdv) 4 mg IVPUSH ONETIME ONE Stop: 02/10/21 15:13 Last Admin: 02/10/21 15:23 Dose: 4 mg Documented by: Quetiapine Fumarate (Quetiapine 25 Mg Tab) 25 mg PO BID [facility] Last Admin: 02/11/21 08:15 Dose: Not Given Documented by: Zinc Sulfate (Zinc Sulfate 220 Mg Cap) 220 mg PO DAILY [facility] Last Admin: 02/10/21 22:06 Dose: Not Given Documented by: - Exam Physical Findings Comments:: General: Alert, Oriented, Moderate Distress, Severe Distress HEENT: PERRLA, Hearing Intact, Mucosa Moist & Fabrica, Nares Patent, Normal Nasal Septum, Posterior Pharynx Clear, Conjunctiva Clear, EOMI, EACs Clear, TMs Clear Neck: Supple, Trachea Midline. No: JVD Lungs: Decreased Breath Sounds, Rhonchi Cardiovascular: Regular Rate, Regular Rhythm GI/Abdominal Exam: Normal Bowel Sounds, Soft, Non-Tender, No Organomegaly, No Distention, No Abnormal Bruit, No Mass, Pelvis Stable (Female) Exam: No: Deferred Rectal (Female) Exam: No: Deferred Back Exam: Normal Inspection, Full Range of Motion, NT Extremities: Normal Inspection Skin: Warm, Dry, Intact Neurological: Cranial Nerves Intact, Reflexes Equal Bilateral Neuro Extensive - Mental Status: Alert, Oriented x3, Normal Mood/Affect, Normal Cognition Neuro Extensive - Motor, Sensory, Reflexes: CN II-XII Intact, Normal Gait, Normal Reflexes Psychiatric: Anxious - Patient Data Lab Results Last 24 hrs: Laboratory Results - last 24 hr 02/10/21 02/11/21 02/11/21 Range/Units 20:25 05:35 05:35 WBC (3.98-10.04) K/mm3 RBC (3.98-5.22) M/mm3 Hgb (11.2-15.7) gm/dl Hct (34.1-44.9) % MCV (79.4-94.8) fl MCH (25.6-32.2) pg MCHC (32.2-35.5) g/dl RDW Std Deviation (36.4-46.3) fL Plt Count (182-369) K/mm3 MPV (9.4-12.3) fl Neut % (Auto) (34.0-71.1) % Lymph % (Auto) (19.3-51.7) % Williams % (Auto) (4.7-12.5) % Eos % (Auto) (0.7-5.8) Baso % (Auto) (0.1-1.2) % Neut # (Auto) (1.56-6.13) K/mm3 Lymph # (Auto) (1.18-3.74) K/mm3 Williams # (Auto) (0.24-0.36) K/mm3 Eos # (Auto) (0.04-0.36) K/mm3 Baso # (Auto) (0.01-0.08) K/mm3 D-Dimer, Quantitative 0.83 H (0.19-0.50) mg/L Sodium (136-145) mEq/L Potassium (3.5-5.1) mEq/L Chloride (98-107) mEq/L Carbon Dioxide (21-32) mEq/L Anion Gap (5-15) BUN (7-18) mg/dL Creatinine (0.55-1.02) mg/dL Est Cr Clr Drug Dosing mL/min Estimated GFR (MDRD) (>60) mL/min BUN/Creatinine Ratio (14-18) Glucose (74-106) mg/dL Lactic Acid (0.4-2.0) mmol/L Calcium (8.5-10.1) mg/dL Magnesium (1.8-2.4) mg/dl Ferritin 1267 H (8-252) ng/ml Total Bilirubin (0.2-1.0) mg/dL AST (15-37) U/L ALT (14-59) U/L Alkaline Phosphatase (46-116) U/L C-Reactive Protein (<1.0) mg/dL Total Protein (6.4-8.2) g/dl Albumin (3.4-5.0) g/dl Globulin gm/dL Albumin/Globulin Ratio (1-2) Urine Color Yellow (Yellow) Urine Appearance Cloudy H (Clear) Urine pH 6.0 (5.0-8.0) Ur Specific [place] > or = 1.030 (1.005-1.030) Urine Protein 2+ H (Negative) Urine Glucose (UA) Negative (Negative) Urine Ketones 1+ H (Negative) Urine Occult Blood Negative (Negative) Urine Nitrite Negative (Negative) Urine Bilirubin 1+ H (Negative) Urine Urobilinogen 0.2 (0.2-1.0) Ur Leukocyte Esterase Negative (Negative) Urine RBC 0-5 (0-5) /hpf Urine WBC 0-5 (0-5) /hpf Ur Squamous Epith Cells 20-30 H (0-5) /hpf Urine Bacteria Moderate H (FEW) /hpf Urine Mucus Moderate H (FEW) /hpf 02/11/21 02/11/21 02/11/21 Range/Units 05:35 05:35 05:35 WBC 3.20 L (3.98-10.04) K/mm3 RBC 4.76 (3.98-5.22) M/mm3 Hgb 13.3 (11.2-15.7) gm/dl Hct 42.4 (34.1-44.9) % MCV 89.1 (79.4-94.8) fl MCH 27.9 (25.6-32.2) pg MCHC 31.4 L (32.2-35.5) g/dl RDW Std Deviation 41.9 (36.4-46.3) fL Plt Count 192 (182-369) K/mm3 MPV 10.0 (9.4-12.3) fl Neut % (Auto) 78.1 H (34.0-71.1) % Lymph % (Auto) 17.8 L (19.3-51.7) % Williams % (Auto) 4.1 L (4.7-12.5) % Eos % (Auto) 0 L (0.7-5.8) Baso % (Auto) 0.0 L (0.1-1.2) % Neut # (Auto) 2.50 (1.56-6.13) K/mm3 Lymph # (Auto) 0.57 L (1.18-3.74) K/mm3 Williams # (Auto) 0.13 L (0.24-0.36) K/mm3 Eos # (Auto) 0.00 L (0.04-0.36) K/mm3 Baso # (Auto) 0.00 L (0.01-0.08) K/mm3 D-Dimer, Quantitative (0.19-0.50) mg/L Sodium 141 (136-145) mEq/L Potassium 3.8 (3.5-5.1) mEq/L Chloride 103 (98-107) mEq/L Carbon Dioxide 23 (21-32) mEq/L Anion Gap 18.8 H (5-15) BUN 23 H (7-18) mg/dL Creatinine 1.1 H (0.55-1.02) mg/dL Est Cr Clr Drug Dosing 42.00 mL/min Estimated GFR (MDRD) 52 (>60) mL/min BUN/Creatinine Ratio 20.9 H (14-18) Glucose 123 H (74-106) mg/dL Lactic Acid 1.4 (0.4-2.0) mmol/L Calcium 7.7 L (8.5-10.1) mg/dL Magnesium 1.9 (1.8-2.4) mg/dl Ferritin (8-252) ng/ml Total Bilirubin 0.3 (0.2-1.0) mg/dL AST 61 H (15-37) U/L ALT 64 H (14-59) U/L Alkaline Phosphatase 37 L (46-116) U/L C-Reactive Protein 9.9 H* (<1.0) mg/dL Total Protein 7.4 (6.4-8.2) g/dl Albumin 2.9 L (3.4-5.0) g/dl Globulin 4.5 gm/dL Albumin/Globulin Ratio 0.6 L (1-2) Urine Color (Yellow) Urine Appearance (Clear) Urine pH (5.0-8.0) Ur Specific [place] (1.005-1.030) Urine Protein (Negative) Urine Glucose (UA) (Negative) Urine Ketones (Negative) Urine Occult Blood (Negative) Urine Nitrite (Negative) Urine Bilirubin (Negative) Urine Urobilinogen (0.2-1.0) Ur Leukocyte Esterase (Negative) Urine RBC (0-5) /hpf Urine WBC (0-5) /hpf Ur Squamous Epith Cells (0-5) /hpf Urine Bacteria (FEW) /hpf Urine Mucus (FEW) /hpf Result Diagrams: 02/11/21 05:35 02/11/21 05:35 [place] Results Last 24 hrs: Microbiology 02/10/21 15:28 Aerobic Blood Culture - Preliminary Blood - Venous - Lab Draw NO GROWTH AFTER 1 DAY Anaerobic Blood Culture - Preliminary NO GROWTH AFTER 1 DAY 02/10/21 15:18 Aerobic Blood Culture - Preliminary Blood - Venous NO GROWTH AFTER 1 DAY Anaerobic Blood Culture - Preliminary NO GROWTH AFTER 1 DAY Sepsis Event Note - Evaluation Sepsis Screening Result: No Definite Risk - Focused Exam Vital Signs: Vital Signs Temp Pulse Resp BP Pulse Ox Pulse Ox 02/11/21 18:22 90 L 02/11/21 18:10 88 L 02/11/21 15:35 36.1 C 59 L 18 89/60 L 99 02/11/21 11:50 36.7 C 61 19 96/57 L 93 L 02/11/21 09:40 93 L 02/11/21 08:00 36.1 C 81 20 95/53 L 88 L - Problem List Review Problem List Initiated/Reviewed/Updated: Yes - My Orders Last 24 Hours: My Active Orders 02/11/21 12:00 Pantoprazole [ProTONIX] 40 mg PO ACBREAKFAST methylPREDNISolone Sod Succ [Solu-MEDROL] 60 mg IVPUSH DAILY 02/11/21 13:15 LORazepam [Ativan] 0.5 mg IVPUSH Q6H PRN 02/11/21 21:00 Enoxaparin [Lovenox] 80 mg SUBCUT BID 02/12/21 05:00 CBC WITH AUTO DIFF [HEME] DAILY COMPREHENSIVE METABOLIC PN,CMP [CHEM] DAILY CRP [C-REACTIVE PROTEIN] [CHEM] DAILY 02/13/21 05:00 CBC WITH AUTO DIFF [HEME] DAILY COMPREHENSIVE METABOLIC PN,CMP [CHEM] DAILY CRP [C-REACTIVE PROTEIN] [CHEM] DAILY 02/14/21 05:00 CBC WITH AUTO DIFF [HEME] DAILY COMPREHENSIVE METABOLIC PN,CMP [CHEM] DAILY CRP [C-REACTIVE PROTEIN] [CHEM] DAILY 02/15/21 05:00 CBC WITH AUTO DIFF [HEME] DAILY COMPREHENSIVE METABOLIC PN,CMP [CHEM] DAILY CRP [C-REACTIVE PROTEIN] [CHEM] DAILY 02/16/21 05:00 CBC WITH AUTO DIFF [HEME] DAILY COMPREHENSIVE METABOLIC PN,CMP [CHEM] DAILY CRP [C-REACTIVE PROTEIN] [CHEM] DAILY 02/17/21 05:00 CRP [C-REACTIVE PROTEIN] [CHEM] DAILY 02/18/21 05:00 CRP [C-REACTIVE PROTEIN] [CHEM] DAILY - Plan Plan:: Patient is a 55-year-old female presenting to the emergency department with complaints of fever, body aches, cough, shortness of breath, nausea with dry heaving, weakness, and diarrhea. Assessment: Acute hypoxic respiratory failure Pneumonia, COVID-19 or CAP Covid 19 positive Anxiety Obesity, BMI 39.3 Soft blood pressure Plan: 1. Continue to monitor in the ICU. Cardia monitor and pulse ox 2. Oxygen therapy. She is on 6 L now. BiPAP as needed dexam/remdesavir/prone positioning CRP 9.9. I would like to add Solu-Medrol 60 mg daily. D-dimer elevated to 0.83. I would like to initiate a therapeutic Lovenox 80 mg twice daily Ceftriaxone and azithromycin Inhalers Repeat CRP daily in morning 3. Ativan 0.5 milligrams IV every 6 hours as needed 4. Dietitian consult 5. Her blood pressure is soft. NS bolus 250 cc was given. Her blood pressure is still soft. I do not want to give the patient too much IV fluid. Midodrine 2.5 mg 3 times daily 6. DVT prophylaxis: Lovenox
[2021-02-11] MEDS: cefTRIAXone 2 GM in Sodium Chloride 0.9% 100 ML IV SCH (19:39)
[2021-02-11] MEDS: Enoxaparin 80 MG/0.8 ML Syringe SUBCUT SCH ×2 (19:48→20:09)
[2021-02-11] MEDS: Cholecalciferol (Vitamin D3) 5,000 UNIT Cap PO SCH ×2 (19:48→20:10)
[2021-02-11] MEDS: Zinc Sulfate 220 MG Cap PO SCH ×2 (19:49→20:20)
[2021-02-12] MEDS: guaiFENesin/Dextromethorphan 100-10 MG/5 ML Soln 5 ML Cup PO PRN (01:25)
[2021-02-12] MEDS ORDERED: Midodrine 5 MG Tab PO ONE (01:31)
[2021-02-12] MEDS: Levothyroxine 125 MCG Tab PO SCH (05:54)
[2021-02-12] MEDS: Pantoprazole 40 MG Tab.CR PO SCH (05:54)
[2021-02-12] MEDS: Midodrine 5 MG Tab PO SCH ×2 (06:00→10:10)
[2021-02-12] MEDS: Dexamethasone 4 MG Tab PO SCH (08:10)
[2021-02-12] MEDS: Enoxaparin 80 MG/0.8 ML Syringe SUBCUT SCH (08:11)
[2021-02-12] MEDS: Famotidine 20 MG Tab PO SCH (08:11)
[2021-02-12] MEDS: methylPREDNISolone Sodium Succinate 40 MG/1 ML SDV IVPUSH SCH (08:11)
[2021-02-12] MEDS: LORazepam 2 MG/ML SDV IVPUSH PRN (08:12)
[2021-02-12] MEDS ORDERED: Sodium Chloride 0.45% with KCl 1,000 ML IV SCH (09:30)
[2021-02-12] MEDS ORDERED: Midazolam 1 MG/ML 2 ML SDV ONE (13:36)
[2021-02-12] MEDS ORDERED: Propofol 200 MG/20 ML SDV ONE (13:37)
[2021-02-12] MEDS ORDERED: Succinylcholine/Sod PF 100 MG/5 ML SYRINGE IV ONE (13:39)
[2021-02-12] MEDS ORDERED: Rocuronium 50 MG/5 ML Vial ONE (13:39)
[2021-02-12] MEDS ORDERED: Lidocaine 1% 4 ML ONE (13:39)
[2021-02-12] MEDS ORDERED: Etomidate 2 MG/ML 20 ML SDV IVPUSH ONE (13:39)
--- NOTE | 2021-02-12 14:21 | PCM.SN.2 ---
- Free Text/Narrative Note: Procedure: ICU Intubation Time: [id number] Herb Plummer for covid positive patient requiring transport via helicopter to [place], [place]. Report received from nursing staff. Labs reviewed. Preoxygenation with ambu bag at 10L/MIN. RSI intubation with glidescope #3 stat. Medications administered for intubation: Midazolam 6 mg, Lidocaine 40 mg, Etomidate 20 mg, Succinylcholine 100 mg IVP. Intubation achieved with a single attempt ETT 21cm at the teeth, secured with tube iniguez for transport. CO2 positive, Bilateral breath sounds equal, SPO2 increased to 95%. CXR requested to confirm ETT placement. OG placed per nursing request 60 cm, no return via suction, air auscultated by ASHLI Jeffrey. Will confirm with x ray prior to use. Flight crew received report. Additional Propofol bolus x2 at 50mg administered with Rocuronium 50mg IV. Vital signs stable. Terrie Alicia CRNA
--- NOTE | 2021-02-12 14:53 | PCM.DCSUM1 ---
Discharge Summary - Hospital Course Free Text/Narrative:: Patient is a 55-year-old female presenting to the emergency department with complaints of fever, body aches, cough, shortness of breath, nausea with dry heaving, weakness, and diarrhea. Assessment: Acute hypoxic respiratory failure Pneumonia, COVID-19 or CAP Covid 19 positive Anxiety Obesity, BMI 39.3 Soft blood pressure Plan: 1. Continue to monitor in the ICU. Cardia monitor and pulse ox 2. Oxygen therapy. She is on 6 L now. BiPAP as needed dexam/remdesavir/prone positioning CRP went down to 4.5 today. I would like to discontinue Solu-Medrol 60 mg daily. D-dimer elevated to 0.83. therapeutic Lovenox 80 mg twice daily was initiated yesterday Ceftriaxone and azithromycin Inhalers Repeat CRP daily in morning 3. Ativan 0.5 milligrams IV every 6 hours as needed 4. Dietitian consult 5. Her blood pressure is soft. NS bolus 250 cc was given. Her blood pressure is still soft. I do not want to give the patient too much IV fluid. Midodrine 2.5 mg 3 times daily Around noontime patient started to need more oxygen. She has a tachypnea. Patient was put on high flow. Oxygen saturation 83% on 50 L and 93% on 6 L. I feel this patient would need to be intubated at any time soon. At this point, I would like to transfer this patient to higher level where demographer is available. Spoke to demographer Dr. Lane at [facility] in [place] who graciously accepted patient. As per Dr. Lane, patient was intubated and transferred by air. Diagnosis: Stroke: No - Discharge Data Discharge Date: 02/12/21 Discharge Disposition: DC/Tfer to Acute Hospital 02 Condition: Critical - Referral to Home Health Primary Care Physician: Andres Whitehead MD - Patient Summary/Data Consults: Consultations 02/10/21 18:50 Respiratory Care Assess and Treatment [CONS] Routine - Discharge Plan *PRESCRIPTION DRUG MONITORING PROGRAM REVIEWED*: Not Applicable *COPY OF PRESCRIPTION DRUG MONITORING REPORT IN PATIENT ROSIO: Not Applicable Home Medications: Home Meds Escitalopram [Lexapro] 30 mg PO DAILY 02/10/21 [History] Levothyroxine 125 mcg PO ACBREAKFAST 02/10/21 [History] QUEtiapine [SEROquel] 25 mg PO BID 02/10/21 [History] Acetaminophen [Tylenol] 650 mg PO Q4H PRN tablet 02/12/21 [Rx] Albuterol [Proventil HFA] 1 puff INH Q2H PRN inhaler 02/12/21 [Rx] Azithromycin [Zithromax] 500 mg IV Q24H adv 02/12/21 [Rx] Cholecalciferol (Vitamin D3) [Vitamin D3] 5,000 unit PO BEDTIME cap 02/12/21 [Rx] Dextromethorphan/guaiFENesin [Robitussin DM] 10 ml PO Q4H PRN cup 02/12/21 [Rx] Enoxaparin [Lovenox] 80 mg SUBCUT BID syringe 02/12/21 [Rx] Famotidine [Pepcid] 20 mg PO BID tablet 02/12/21 [Rx] LORazepam [Ativan] 0.5 mg IVPUSH Q6H PRN vial 02/12/21 [Rx] Midodrine 2.5 mg PO TIDAC tablet 02/12/21 [Rx] Ondansetron [Zofran] 4 mg IV Q6H PRN vial 02/12/21 [Rx] Pantoprazole [ProTONIX] 40 mg PO ACBREAKFAST tab.cr 02/12/21 [Rx] Remdesivir 100 mg IV Q24H vial 02/12/21 [Rx] Sodium Chloride 0.45% with KCl [1/2 NS with 20 mEq KCl] 50 ml IV ASDIRECTED bag 02/12/21 [Rx] Sodium Chloride 0.9% [Saline Flush] 10 ml FLUSH ASDIRECTED PRN syringe 02/12/21 [Rx] Zinc Sulfate [Zincate] 220 mg PO BEDTIME cap 02/12/21 [Rx] cefTRIAXone [Rocephin] 2 gm IV Q24H adv 02/12/21 [Rx] dexAMETHasone [Dexamethasone] 6 mg PO DAILY tablet 02/12/21 [Rx] Forms: ED Department Discharge Referrals: Andres Whitehead MD [Primary Care Provider] - - Discharge Summary/Plan Comment DC Time >30 min.: Yes - General Info Date of Service: 02/12/21 Admission Dx/Problem (Free Text: Admission Diagnosis/Problem Admission Diagnosis/Problem Pneumonia Subjective Update: Patient is a 55-year-old female presenting to the emergency department with complaints of fever, body aches, cough, shortness of breath, nausea with dry heaving, weakness, and diarrhea. She has more shortness of breath and needed more oxygen - Review of Systems General: Reports: No Symptoms HEENT: Reports: No Symptoms Pulmonary: Reports: Shortness of Breath Cardiovascular: Reports: No Symptoms Gastrointestinal: Reports: No Symptoms Genitourinary: Reports: No Symptoms Musculoskeletal: Reports: No Symptoms Skin: Reports: No Symptoms Neurological: Reports: No Symptoms Psychiatric: Reports: No Symptoms - Patient Data Vitals - Most Recent: Last Vital Signs Temp 36.1 C 02/12/21 12:00 Pulse 60 02/12/21 12:00 Resp 25 H 02/12/21 12:00 BP 98/70 02/12/21 12:00 Pulse Ox 96 02/12/21 12:28 Weight - Most Recent: 91.444 kg I&O - Last 24 hours: Intake & Output 02/11/21 02/12/21 02/12/21 22:59 06:59 14:59 Intake Total 300 320 Balance 300 320 Lab Results - Last 24 hrs: Laboratory Results - last 24 hr 02/12/21 02/12/21 02/12/21 Range/Units 06:30 06:30 06:30 WBC 5.61 (3.98-10.04) K/mm3 RBC 4.52 (3.98-5.22) M/mm3 Hgb 12.6 (11.2-15.7) gm/dl Hct 40.5 (34.1-44.9) % MCV 89.6 (79.4-94.8) fl MCH 27.9 (25.6-32.2) pg MCHC 31.1 L (32.2-35.5) g/dl RDW Std Deviation 42.4 (36.4-46.3) fL Plt Count 258 (182-369) K/mm3 MPV 10.2 (9.4-12.3) fl Neut % (Auto) 81.4 H (34.0-71.1) % Lymph % (Auto) 12.7 L (19.3-51.7) % [place] % (Auto) 5.7 (4.7-12.5) % Eos % (Auto) 0 L (0.7-5.8) Baso % (Auto) 0.0 L (0.1-1.2) % Neut # (Auto) 4.57 (1.56-6.13) K/mm3 Lymph # (Auto) 0.71 L (1.18-3.74) K/mm3 [place] # (Auto) 0.32 (0.24-0.36) K/mm3 Eos # (Auto) 0.00 L (0.04-0.36) K/mm3 Baso # (Auto) 0.00 L (0.01-0.08) K/mm3 D-Dimer, Quantitative 0.66 H (0.19-0.50) mg/L Sodium 146 H (136-145) mEq/L Potassium 3.5 (3.5-5.1) mEq/L Chloride 108 H (98-107) mEq/L Carbon Dioxide 26 (21-32) mEq/L Anion Gap 15.5 H (5-15) BUN 20 H (7-18) mg/dL Creatinine 1.0 (0.55-1.02) mg/dL Est Cr Clr Drug Dosing 46.19 mL/min Estimated GFR (MDRD) 58 (>60) mL/min BUN/Creatinine Ratio 20.0 H (14-18) Glucose 150 H (74-106) mg/dL Calcium 7.5 L (8.5-10.1) mg/dL Magnesium 2.0 (1.8-2.4) mg/dl Total Bilirubin 0.2 (0.2-1.0) mg/dL AST 42 H (15-37) U/L ALT 52 (14-59) U/L Alkaline Phosphatase 39 L (46-116) U/L C-Reactive Protein 4.5 H* (<1.0) mg/dL Total Protein 6.9 (6.4-8.2) g/dl Albumin 2.7 L (3.4-5.0) g/dl Globulin 4.2 gm/dL Albumin/Globulin Ratio 0.6 L (1-2) ACE Results - Last 24 hrs: Microbiology 02/10/21 15:28 Aerobic Blood Culture - Preliminary Blood - Venous - Lab Draw NO GROWTH AFTER 1 DAY Anaerobic Blood Culture - Preliminary NO GROWTH AFTER 1 DAY 02/10/21 15:18 Aerobic Blood Culture - Preliminary Blood - Venous NO GROWTH AFTER 1 DAY Anaerobic Blood Culture - Preliminary NO GROWTH AFTER 1 DAY Med Orders - Current: Current Medications Acetaminophen (Acetaminophen 325 Mg Tab) 650 mg PO Q4H PRN PRN Reason: Fever Greater Than 101 Albuterol (Albuterol 6.7 Gm Inhaler) 0 gm INH Q2H PRN PRN Reason: SOB/Wheezing Cholecalciferol (Cholecalciferol (Vitamin D3) 5,000 Unit Cap) 5,000 unit PO BEDTIME [facility] Last Admin: 02/11/21 20:10 Dose: Not Given Documented by: Dexamethasone (Dexamethasone 4 Mg Tab) 6 mg PO DAILY [facility] Stop: 02/19/21 09:01 Last Admin: 02/12/21 08:10 Dose: 6 mg Documented by: Enoxaparin Sodium (Enoxaparin 80 Mg/0.8 Ml Syringe) 80 mg SUBCUT BID [facility] Last Admin: 02/12/21 08:11 Dose: 80 mg Documented by: Famotidine (Famotidine 20 Mg Tab) 20 mg PO BID [facility] Last Admin: 02/12/21 08:11 Dose: 20 mg Documented by: Guaifenesin/Phenylephrine HCl (Guaifenesin/Dextromethorphan 100-10 Mg/5 Ml Soln 5 Ml Cup) 10 ml PO Q4H PRN PRN Reason: Cough Last Admin: 02/12/21 01:25 Dose: 10 ml Documented by: Azithromycin 500 mg/ Sodium (Chloride) 250 mls @ 250 mls/hr IV Q24H [facility] Stop: 02/12/21 19:29 Last Admin: 02/11/21 17:34 Dose: 250 mls/hr Documented by: Ceftriaxone Sodium 2 gm/ (Sodium Chloride) 100 mls @ 200 mls/hr IV Q24H [facility] Stop: 02/14/21 20:29 Last Admin: 02/11/21 19:39 Dose: 200 mls/hr Documented by: Remdesivir 100 mg/ Sodium (Chloride) 100 mls @ 100 mls/hr IV Q24H [facility] Stop: 02/14/21 21:59 Last Admin: 02/11/21 20:27 Dose: 100 mls/hr Documented by: Potassium Chloride/Sodium Chloride (1/2 Ns With 20 Meq Kcl) 1,000 mls @ 50 mls/hr IV ASDIRECTED [facility] Last Admin: 02/12/21 10:10 Dose: 50 mls/hr Documented by: Levothyroxine Sodium (Levothyroxine 125 Mcg Tab) 125 mcg PO ACBREAKFAST [facility] Last Admin: 02/12/21 05:54 Dose: 125 mcg Documented by: Lorazepam (Lorazepam 2 Mg/Ml Sdv) 0.5 mg IVPUSH Q6H PRN PRN Reason: Anxiety Last Admin: 02/12/21 08:12 Dose: 0.5 mg Documented by: Methylprednisolone Sodium Succinate (Methylprednisolone Sodium Succinate 40 Mg/1 Ml Sdv) 60 mg IVPUSH DAILY [facility] Stop: 02/13/21 09:01 Last Admin: 02/12/21 08:11 Dose: 60 mg Documented by: Midodrine (Midodrine 5 Mg Tab) 2.5 mg PO TIDAC [facility] Last Admin: 02/12/21 10:10 Dose: 2.5 mg Documented by: Ondansetron HCl (Ondansetron 4 Mg/2 Ml Sdv) 4 mg IV Q6H PRN PRN Reason: Nausea/Vomiting Pantoprazole Sodium (Pantoprazole 40 Mg Tab.Cr) 40 mg PO ACBREAKFAST [facility] Last Admin: 02/12/21 05:54 Dose: 40 mg Documented by: Sodium Chloride (Sodium Chloride 0.9% 10 Ml Syringe) 10 ml FLUSH ASDIRECTED PRN PRN Reason: Keep Vein Open Last Admin: 02/10/21 15:26 Dose: 10 ml Documented by: Zinc Sulfate (Zinc Sulfate 220 Mg Cap) 220 mg PO BEDTIME [facility] Last Admin: 02/11/21 20:20 Dose: Not Given Documented by: Discontinued Medications Aspirin (Aspirin 81 Mg Tab.Ec) 81 mg PO DAILY [facility] Last Admin: 02/11/21 08:08 Dose: 81 mg Documented by: Cholecalciferol (Cholecalciferol (Vitamin D3) 5,000 Unit Cap) 5,000 unit PO DAILY [facility] Last Admin: 02/10/21 22:06 Dose: Not Given Documented by: Citalopram Hydrobromide (Citalopram 20 Mg Tab) 40 mg PO DAILY [facility] Last Admin: 02/11/21 08:23 Dose: Not Given Documented by: Dexamethasone (Dexamethasone 4 Mg/Ml Sdv) 6 mg IVPUSH ONETIME ONE Stop: 02/10/21 15:42 Last Admin: 02/10/21 15:48 Dose: 6 mg Documented by: Dexamethasone (Dexamethasone 10 Mg/Ml Sdv) 6 mg IVPUSH DAILY [facility] Stop: 02/19/21 09:01 Enoxaparin Sodium (Enoxaparin 30 Mg/0.3 Ml Syringe) 30 mg SUBCUT BID [facility] Last Admin: 02/11/21 08:07 Dose: 30 mg Documented by: Etomidate (Etomidate 2 Mg/Ml 20 Ml Sdv) Confirm Administered Dose 40 mg IVPUSH .STK-MED ONE Stop: 02/12/21 13:40 Remdesivir 100 mg/ Sodium (Chloride) 100 mls @ 100 mls/hr IV DAILY [facility] Stop: 02/14/21 09:59 Ceftriaxone Sodium 2 gm/ (Sodium Chloride) 100 mls @ 200 mls/hr IV Q24H [facility] Stop: 02/14/21 18:29 Last Admin: 02/10/21 19:06 Dose: Not Given Documented by: Remdesivir 200 mg/ Sodium (Chloride) 250 mls @ 250 mls/hr IV ONETIME ONE Stop: 02/10/21 18:45 Last Admin: 02/10/21 19:20 Dose: Not Given Documented by: Remdesivir 100 mg/ Sodium (Chloride) 100 mls @ 100 mls/hr IV DAILY [facility] Stop: 02/14/21 09:59 Remdesivir 200 mg/ Sodium (Chloride) 250 mls @ 250 mls/hr IV ONETIME ONE Stop: 02/10/21 21:59 Last Admin: 02/10/21 21:11 Dose: 250 mls/hr Documented by: Methylprednisolone Sodium Succinate 60 mg/ Sodium Chloride 250.48 mls @ 250.48 mls/hr IV DAILY ONE Stop: 02/11/21 11:51 Last Admin: 02/11/21 12:01 Dose: Not Given Documented by: Sodium Chloride (Normal Saline) 250 mls @ 250 mls/hr IV ASDIRECTED ONE Stop: 02/11/21 13:29 Last Admin: 02/11/21 12:47 Dose: 250 mls/hr Documented by: Lidocaine HCl (Xylocaine-Mpf 1%) Confirm Administered Dose 4 mls @ as directed .ROUTE .STK-MED ONE Stop: 02/12/21 13:40 Ketorolac Tromethamine (Ketorolac 30 Mg/Ml Sdv) 30 mg IVPUSH ONETIME ONE Stop: 02/10/21 15:13 Last Admin: 02/10/21 15:22 Dose: 30 mg Documented by: Lorazepam (Lorazepam 2 Mg/Ml Sdv) 0.5 mg IVPUSH ONETIME ONE Stop: 02/10/21 16:39 Last Admin: 02/10/21 16:57 Dose: 0.5 mg Documented by: Lorazepam (Lorazepam 1 Mg Tab) 1 mg PO Q6H PRN PRN Reason: Anxiety Last Admin: 02/11/21 04:19 Dose: 1 mg Documented by: Lorazepam (Lorazepam 1 Mg Tab) 0.5 - 1 mg PO BID [facility] Last Admin: 02/11/21 08:08 Dose: 1 mg Documented by: Magnesium Oxide (Magnesium Oxide 400 Mg Tab) 400 mg PO ONETIME ONE Stop: 02/10/21 19:11 Last Admin: 02/10/21 19:55 Dose: 400 mg Documented by: Midazolam HCl (Midazolam 1 Mg/Ml 2 Ml Sdv) Confirm Administered Dose 6 mg .ROUTE .STK-MED ONE Stop: 02/12/21 13:37 Midodrine (Midodrine 5 Mg Tab) 2.5 mg PO ONETIME ONE Stop: 02/12/21 01:32 Last Admin: 02/12/21 01:44 Dose: 2.5 mg Documented by: Neomycin/Polymyxin/Hydrocortisone (Hydrocortisone/Neomycin/Polymyxin B Otic Susp 10 Ml Bottle) 0 ml .XX QID [facility] Last Admin: 02/11/21 08:23 Dose: Not Given Documented by: Ondansetron HCl (Ondansetron 4 Mg/2 Ml Sdv) 4 mg IVPUSH ONETIME ONE Stop: 02/10/21 15:13 Last Admin: 02/10/21 15:23 Dose: 4 mg Documented by: Propofol (Propofol 200 Mg/20 Ml Sdv) Confirm Administered Dose 200 mg .ROUTE .ST K-MED ONE Stop: 02/12/21 13:38 Quetiapine Fumarate (Quetiapine 25 Mg Tab) 25 mg PO BID [facility] Last Admin: 02/11/21 08:15 Dose: Not Given Documented by: Rocuronium [place] (Rocuronium 50 Mg/5 Ml Vial) Confirm Administered Dose 50 mg .ROUTE .STK-MED ONE Stop: 02/12/21 13:40 Zinc Sulfate (Zinc Sulfate 220 Mg Cap) 220 mg PO DAILY [facility] Last Admin: 02/10/21 22:06 Dose: Not Given Documented by: - Exam Physical Findings Comments:: General: Alert, Oriented, Moderate Distress, Severe Distress HEENT: PERRLA, Hearing Intact, Mucosa Moist & [place], Nares Patent, Normal Nasal Septum, Posterior Pharynx Clear, Conjunctiva Clear, EOMI, EACs Clear, TMs Clear Neck: Supple, Trachea Midline. No: JVD Lungs: Decreased Breath Sounds, Rhonchi Cardiovascular: Regular Rate, Regular Rhythm GI/Abdominal Exam: Normal Bowel Sounds, Soft, Non-Tender, No Organomegaly, No Distention, No Abnormal Bruit, No Mass, Pelvis Stable (Female) Exam: No: Deferred Rectal (Female) Exam: No: Deferred Back Exam: Normal Inspection, Full Range of Motion, NT Extremities: Normal Inspection Skin: Warm, Dry, Intact Neurological: Cranial Nerves Intact, Reflexes Equal Bilateral Neuro Extensive - Mental Status: Alert, Oriented x3, Normal Mood/Affect, Normal Cognition Neuro Extensive - Motor, Sensory, Reflexes: CN II-XII Intact, Normal Gait, Normal Reflexes Psychiatric: Anxious
--- NOTE | 2021-02-13 08:52 | CR ---
Chest: Portable supine view of the chest was obtained as well as additional views centered to the diaphragms. Comparison: Prior chest x-ray performed earlier on the same day (10:58 AM) Findings: Nasogastric tube is seen with the tip lying within the stomach. Endotracheal tube is noted with the tip located about 1.5 cm above the manfred. Diffuse parenchymal density is seen within both lungs which appear similar to most recent exam. Bony structures are grossly intact. Stable surgical clips are seen within the neck. Impression: 1. Endotracheal tube with tip lying about 1.5 cm above the manfred. 2. Satisfactory nasogastric tube. 3. Diffuse parenchymal densities are noted within both sides of the chest. Diagnostic code #3 I agree with preliminary report from [facility], finalized on 02/12/21, 3:31 PM CDT, code 1
--- NOTE | 2021-02-13 09:12 | CR ---
Chest: Portable view of the chest was obtained. Comparison: Prior chest x-ray of 02/12/21. Patchy increased densities are seen within both sides of the chest, worse on the right side. Findings have slightly progressed from previous exam. Heart size and mediastinum are within normal limits. No definite acute osseous finding is seen. Impression: 1. Slight increasing parenchymal change within both lungs, worse on the right side. Findings presumably represent diffuse COVID pneumonia. 2. No other acute abnormality is appreciated. Diagnostic code #3 I agree with preliminary report from [facility], finalized on 02/12/21, 12:55 PM CDT, code 1
== END 2021-02-12 14:20 | DRG 137 ==
LOC: JD.ED 14:11 → JD.ICU 16:42
PROVIDERS: ADMIT Pediatrics; ATTEND Pediatrics
PROC: XW033E5 Introduction of Remdesivir Anti-infective into Peripheral Vein, Percutaneous Approach, New Technology Group 5 (ICD-10-PCS; principal; 2021-02-10)
PROC: 8E0ZXY6 Isolation (ICD-10-PCS; 2021-02-10)
PROC: 0BH17EZ Insertion of Endotracheal Airway into Trachea, Via Natural or Artificial Opening (ICD-10-PCS; 2021-02-12)
DX: U07.1 COVID-19 (principal); J12.82 Pneumonia due to coronavirus disease 2019; J96.01 Acute respiratory failure with hypoxia; F41.9 Anxiety disorder, unspecified; E66.9 Obesity, unspecified; Z68.39 Body mass index [BMI] 39.0-39.9, adult; F32.9 Major depressive disorder, single episode, unspecified; H54.7 Unspecified visual loss; Z90.49 Acquired absence of other specified parts of digestive tract; Z90.710 Acquired absence of both cervix and uterus
CPT/HCPCS: 0240U; 36415; 36600; 51702; 71045; 71045-26; 80053; 81001; 82728; 82803; 83605; 83615; 83735; 83880; 84484; 85007; 85025; 85027; 85379; 85610; 86140; 87040; 93005; 93010; 94667; 94668; 94762; 96374; 96375; 99284; 99285-25; A9270-GY; J0330; J0456; J0696; J1100; J1650; J1885; J2060; J2250; J2405; J2704; J2920; J3480; J3490; J7050; J8540

== ENCOUNTER 2023-04-17 11:54 | Emergency (ER) | payer BC ==
[2023-04-17 13:33] LABS: BASOPHILS ABSOLUTE AUTO 0.04 K/mm3 (0.01-0.08); BASOPHILS PERCENT AUTO 0.5 % (0.1-1.2); EOSINOPHILS ABSOLUTE AUTO 0.11 K/mm3 (0.04-0.36); EOSINOPHILS PERCENT AUTO 1.4 (0.7-5.8); HEMATOCRIT 44.3 % (34.1-44.9); HEMOGLOBIN 13.9 gm/dl (11.2-15.7); IMMATURE GRAN ABSOLUTE AUTO 0.01 K/mm3 (0.00-0.10); IMMATURE GRAN PERCENT AUTO 0.1 % (<=1.0); LYMPHOCYTES ABSOLUTE AUTO 2.17 K/mm3 (1.18-3.74); LYMPHOCYTES PERCENT AUTO 27.6 % (19.3-51.7); MEAN CORPUSCULAR HEMOGLOBIN 26.4 pg (25.6-32.2); MEAN CORPUSCULAR HGB CONC 31.4 g/dl (32.2-35.5); MEAN PLATELET VOLUME 10.3 fl (9.4-12.3); MONOCYTES PERCENT AUTO 6.4 % (4.7-12.5); NEUTROPHILS ABSOLUTE AUTO 5.04 K/mm3 (1.56-6.13); PLATELET COUNT,PLT 325 K/mm3 (182-369); RED BLOOD CELL COUNT 5.26 M/mm3 (3.98-5.22); WHITE BLOOD CELL COUNT,WBC 7.87 K/mm3 (3.98-10.04)
[2023-04-17 13:38] LABS: MEAN CORPUSCULAR VOLUME 84.2 fl (79.4-94.8)
[2023-04-17 13:48] LABS: APPEARANCE,URINE SLT CLOUDY (Clear); BILIRUBIN,URINE NEGATIVE (Negative); COLOR,URINE YELLOW (Yellow); GLUCOSE,URINE NEGATIVE (Negative); KETONES,URINE NEGATIVE (Negative); LEUKOCYTE ESTERASE,URINE TRACE (Negative); NITRITE,URINE NEGATIVE (Negative); OCCULT BLOOD,URINE NEGATIVE (Negative); PROTEIN,URINE NEGATIVE (Negative); UROBILINOGEN,URINE 0.2 (0.2-1.0)
[2023-04-17 13:55] LABS: BARBITURATE SCREEN,URINE NEGATIVE (CUTOFF=200); BENZODIAZEPINES SCREEN,URINE PRESUMPTIVE POSITIVE (CUTOFF=150); BUPRENORPHINE SCREEN,URINE NEGATIVE (CUTOFF=10); METHADONE SCREEN, URINE NEGATIVE (CUTOFF=200); METHAMPHETAMINES SCREEN, URINE NEGATIVE (CUTOFF=500); OXYCODONE SCREEN,URINE NEGATIVE (CUT0FF=100); PROPOXYPHENE SCREEN,URINE NEGATIVE (CUTOFF=300); THC SCREEN,URINE 20 NG/ML NEGATIVE (CUTOFF=50)
[2023-04-17 13:57] LABS: BACTERIA,URINE FEW /hpf (FEW); EPITHELIAL CELLS,URINE 20-30 /hpf (0-5); MUCUS,URINE FEW /hpf (FEW); RBC,URINE 0-5 /hpf (0-5)
[2023-04-17 14:12] LABS: AMPHETAMINES SCREEN, URINE NEGATIVE (CUTOFF=500)
[2023-04-17 14:16] LABS: ALANINE AMINOTRANSFERASE,ALT 29 U/L (14-59); ALBUMIN 3.7 g/dl (3.4-5.0); ALKALINE PHOSPHATASE 64 U/L (46-116); ANION GAP 13.1 (5-15); ASPARTATE AMNIOTRANSFERASE,AST 15 U/L (15-37); BILIRUBIN TOTAL 0.4 mg/dL (0.2-1.0); BLOOD UREA NITROGEN,BUN 17 mg/dL (7-18); BUN/CREATININE RATIO 18.9 (14-18); C-REACTIVE PROTEIN 0.9 mg/dL (<1.0); CALCIUM 8.7 mg/dL (8.5-10.1); CARBON DIOXIDE,CO2 25 mEq/L (21-32); CHLORIDE,CL 106 mEq/L (98-107); CREATININE 0.9 mg/dL (0.55-1.02); EST CRCL DRUG DOSING (CG) 50.13 mL/min; ESTIMATED GFR 75 mL/min (>60); GLUCOSE RANDOM 84 mg/dL (70-99); MAGNESIUM 2.2 mg/dL (1.8-2.4); POTASSIUM,K 4.1 mEq/L (3.5-5.1); PROTEIN TOTAL,TP 7.6 g/dl (6.4-8.2); SODIUM,NA 140 mEq/L (136-145); TSH 0.604 uIU/mL (0.358-3.74)
[2023-04-17 14:17] LABS: TROPONIN I HIGH SENSITIVITY < 4 pg/mL (<=51)
[2023-04-17] MEDS ORDERED: diphenhydrAMINE 50 MG/ML SDV IVPUSH ONE (15:25)
[2023-04-17] MEDS ORDERED: diphenhydrAMINE 50 MG/ML SDV IM ONE (16:10)
== END 2023-04-17 16:20 | disposition home or self-care (01) ==
LOC: JD.ED 11:54
DX: S92.424A Nondisplaced fracture of distal phalanx of right great toe, initial encounter for closed fracture (principal); R07.89 Other chest pain; R42 Dizziness and giddiness; Z79.899 Other long term (current) drug therapy; W20.8XXA Other cause of strike by thrown, projected or falling object, initial encounter
CPT/HCPCS: 36415; 70450; 71045; 73630; 80053; 80306; 81001; 83735; 84443; 84484; 85025; 85652; 86140; 87086; 93005; 96372; 99285; J1200; 93010; 99284